=== PATIENT | male | born 1950 | race African-American/Black ===

== ENCOUNTER 2022-06-07 09:26 | Inpatient (IN) | payer MEDICARE, OTHER ==
[2022-06-07] MEDS ORDERED: GLUCAGON 1 MG/ML VIAL IM STA (09:49)
[2022-06-07 09:54] LABS: Glucose,Whole Blood 26 mg/dL (70-110)
[2022-06-07] MEDS ORDERED: DEXTROSE 50% SYRINGE 50 ML IVP STA (10:00)
--- NOTE | 2022-06-07 10:16 | ED ---
General Adult HPI - General Chief complaint: Recheck/Abnormal Lab/Rx Stated complaint: hyperglycemia Time Seen by Provider: 06/07/22 09:40 Source: patient, EMS, RN notes reviewed, old records reviewed Mode of arrival: EMS Limitations: altered mental status - History of Present Illness Initial comments: This is a 71-year-old male with past medical history significant for renal disease. Patient is on dialysis 3 days a week he missed yesterday's dialysis. Significant other found the patient unresponsive this morning and called EMS. EMS stated the patient's blood sugar was extremely low in the 40s but they were unable to get a line so they gave him oral glucose but had no effect so they brought to the emergency Department. No other history is available this time. There is no history of diabetes per the significant other - Related Data Home Medications Medication Instructions Recorded Confirmed ALPRAZolam [Xanax] 2 mg PO BID 06/07/22 06/07/22 Albuterol Nebulized [Ventolin 2.5 mg INHALATION RT-QID PRN 06/07/22 06/07/22 Nebulized] Amoxic-Pot Clav 500-125 mg 1 tab PO BID 06/07/22 06/07/22 [Augmentin 500-125 mg] Calcium Acetate [Phoslo] 2,004 mg PO TID 06/07/22 06/07/22 Cholecalciferol [Vitamin D3 (125 125 mcg PO DAILY 06/07/22 06/07/22 Mcg = 5000 Iu)] Cyclobenzaprine [Flexeril] 10 mg PO TID 06/07/22 06/07/22 Nora-Kathryn 1 tab PO DAILY 06/07/22 06/07/22 Tiotropium Br/Olodaterol HCl 2 puff INHALATION RT-DAILY 06/07/22 06/07/22 [Stiolto Respimat Inhal [place]] diphenhydrAMINE [Benadryl] 50 mg PO HS PRN 06/07/22 06/07/22 methylPREDNISolone [Medrol Dose See Taper PO DIRECTED 06/07/22 06/07/22 Pack] oxyCODONE-APAP 10-325MG [Percocet 1 tab PO Q4HR PRN 06/07/22 06/07/22 10-325 mg] Allergies Allergy/AdvReac Type Severity Reaction Status Date / Time No Known Allergies Allergy Verified 06/07/22 12:05 Review of Systems ROS Statement: Those systems with pertinent positive or pertinent negative responses have been documented in the HPI. ROS Other: All systems not noted in ROS Statement are negative. Past Medical History Past Medical History: Diabetes Mellitus, Dialysis History of Any Multi-Drug Resistant Organisms: None Reported Past Surgical History: Unable to Obtain Smoking Status: Unknown if ever smoked Past Alcohol Use History: Unable to Obtain Past Drug Use History: Unable to Obtain General Exam - General Exam Comments Initial Comments: GENERAL: Patient is well-developed and well-nourished. Patient is nontoxic and well- hydrated and is in mild distress. ENT: Neck is soft and supple. No significant lymphadenopathy is noted. Oropharynx is clear. Moist mucous membranes. Neck has full range of motion without eliciting any pain. EYES: The sclera were anicteric and conjunctiva were pink and moist. Extraocular movements were intact and pupils were equal round and reactive to light. Eyelids were unremarkable. PULMONARY: Unlabored respirations. Good breath sounds bilaterally. No audible rales r honchi or wheezing was noted. CARDIOVASCULAR: There is a regular rate and rhythm without any murmurs gallops or rubs. ABDOMEN: Soft and nontender with normal bowel sounds. SKIN: Skin is clear with no lesions or rashes and otherwise unremarkable. NEUROLOGIC: Patient is not alert . Patient appears to move all 4 extremities MUSCULOSKELETAL: Normal extremities with adequate strength and full range of motion. LYMPHATICS: No significant lymphadenopathy is noted PSYCHIATRIC: Unable to assess Limitations: altered mental status Course Vital Signs 06/07/22 09:31 Pulse Rate 104 H Respiratory 20 Rate Blood Pressure 162/104 O2 Sat by Pulse 97 Oximetry Medical Decision Making - Medical Decision Making EKG shows sinus rhythm with frequent PVCs at 99 bpm PA interval 248 QRS on a 47 QT interval 397 QTC is 453 per patient's EKG shows no ST segment elevation or depression. CT of the brain shows no acute abnormality. Chest x-ray shows no acute abnormality. Patient initially received 1 amp of D50 and after we did that his blood sugar was up over 200 and then the little bit later he dropped back down to 60/gave another half an amp of D50 and placed the patient on D5 0.[address] Waters he wanted to admit the patient and the patient wrote adm itting orders. I went back into the room to reevaluate the patient he was able to answer to me his name which was an improvement from his previous mental status. I also consulted nephrology - Lab Data Result diagrams: 06/07/22 09:05 06/07/22 09:05 Lab Results 06/07/22 06/07/22 06/07/22 Range/Units 09:05 09:05 09:05 WBC 9.7 (3.8-10.6) k/uL RBC 4.84 (4.30-5.90) m/uL Hgb 9.7 L (13.0-17.5) gm/dL Hct 36.1 L (39.0-53.0) % MCV 74.6 L (80.0-100.0) fL MCH 19.9 L (25.0-35.0) pg MCHC 26.7 L (31.0-37.0) g/dL RDW 21.1 H (11.5-15.5) % Plt Count 107 L (150-450) k/uL MPV 7.9 Neutrophils % 81 % Lymphocytes % 12 % Monocytes % 5 % Eosinophils % 0 % Basophils % 0 % Neutrophils # 7.9 H (1.3-7.7) k/uL Lymphocytes # 1.2 (1.0-4.8) k/uL Monocytes # 0.5 (0-1.0) k/uL Eosinophils # 0.0 (0-0.7) k/uL Basophils # 0.0 (0-0.2) k/uL Manual Slide Review Performed Hypochromasia Marked Poikilocytosis Slight Anisocytosis Moderate Microcytosis Moderate Target Cells Present Tear Drop Cells Present Rouleaux Present Fragmented RBCs Present Sodium 138 (137-145) mmol/L Potassium 5.0 (3.5-5.1) mmol/L Chloride 88 L (98-107) mmol/L Carbon Dioxide 15 L (22-30) mmol/L Anion Gap 35 mmol/L BUN 31 H (9-20) mg/dL Creatinine 9.53 H* (0.66-1.25) mg/dL Est GFR (CKD-EPI)AfAm 6 (>60 ml/min/1.73 sqM) Est GFR (CKD-EPI)NonAf 5 (>60 ml/min/1.73 sqM) Glucose <20 L* (74-99) mg/dL POC Glucose (mg/dL) (70-110) mg/dL POC Glu Rags Laborer ID Calcium 9.7 (8.4-10.2) mg/dL Magnesium 2.3 (1.6-2.3) mg/dL Total Bilirubin 4.1 H (0.2-1.3) mg/dL AST 76 H (17-59) U/L ALT 32 (4-49) U/L Alkaline Phosphatase 55 (38-126) U/L Troponin I (0.000-0.034) ng/mL Total Protein 8.9 H (6.3-8.2) g/dL Albumin 4.6 (3.5-5.0) g/dL 06/07/22 06/07/22 06/07/22 Range/Units 09:05 09:52 10:26 WBC (3.8-10.6) k/uL RBC (4.30-5.90) m/uL Hgb (13.0-17.5) gm/dL Hct (39.0-53.0) % MCV (80.0-100.0) fL MCH (25.0-35.0) pg MCHC (31.0-37.0) g/dL RDW (11.5-15.5) % Plt Count (150-450) k/uL MPV Neutrophils % % Lymphocytes % % Monocytes % % Eosinophils % % Basophils % % Neutrophils # (1.3-7.7) k/uL Lymphocytes # (1.0-4.8) k/uL Monocytes # (0-1.0) k/uL Eosinophils # (0-0.7) k/uL Basophils # (0-0.2) k/uL Manual Slide Review Hypochromasia Poikilocytosis Anisocytosis Microcytosis Target Cells Tear Drop Cells Rouleaux Fragmented RBCs Sodium (137-145) mmol/L Potassium (3.5-5.1) mmol/L Chloride (98-107) mmol/L Carbon Dioxide (22-30) mmol/L Anion Gap mmol/L BUN (9-20) mg/dL Creatinine (0.66-1.25) mg/dL Est GFR (CKD-EPI)AfAm (>60 ml/min/1.73 sqM) Est GFR (CKD-EPI)NonAf (>60 ml/min/1.73 sqM) Glucose (74-99) mg/dL POC Glucose (mg/dL) 26 L 104 (70-110) mg/dL POC Glu Rags Laborer Kris Saunders Maison Calcium (8.4-10.2) mg/dL Magnesium (1.6-2.3) mg/dL Total Bilirubin (0.2-1.3) mg/dL AST (17-59) U/L ALT (4-49) U/L Alkaline Phosphatase (38-126) U/L Troponin I 0.099 H* (0.000-0.034) ng/mL Total Protein (6.3-8.2) g/dL Albumin (3.5-5.0) g/dL 06/07/22 06/07/22 Range/Units 10:58 12:03 WBC (3.8-10.6) k/uL RBC (4.30-5.90) m/uL Hgb (13.0-17.5) gm/dL Hct (39.0-53.0) % MCV (80.0-100.0) fL MCH (25.0-35.0) pg MCHC (31.0-37.0) g/dL RDW (11.5-15.5) % Plt Count (150-450) k/uL MPV Neutrophils % % Lymphocytes % % Monocytes % % Eosinophils % % Basophils % % Neutrophils # (1.3-7.7) k/uL Lymphocytes # (1.0-4.8) k/uL Monocytes # (0-1.0) k/uL Eosinophils # (0-0.7) k/uL Basophils # (0-0.2) k/uL Manual Slide Review Hypochromasia Poikilocytosis Anisocytosis Microcytosis Target Cells Tear Drop Cells Rouleaux Fragmented RBCs Sodium (137-145) mmol/L Potassium (3.5-5.1) mmol/L Chloride (98-107) mmol/L Carbon Dioxide (22-30) mmol/L Anion Gap mmol/L BUN (9-20) mg/dL Creatinine (0.66-1.25) mg/dL Est GFR (CKD-EPI)AfAm (>60 ml/min/1.73 sqM) Est GFR (CKD-EPI)NonAf (>60 ml/min/1.73 sqM) Glucose (74-99) mg/dL POC Glucose (mg/dL) 205 H 60 L (70-110) mg/dL POC Glu Rags Laborer Charlotte Larson Maison Calcium (8.4-10.2) mg/dL Magnesium (1.6-2.3) mg/dL Total Bilirubin (0.2-1.3) mg/dL AST (17-59) U/L ALT (4-49) U/L Alkaline Phosphatase (38-126) U/L Troponin I (0.000-0.034) ng/mL Total Protein (6.3-8.2) g/dL Albumin (3.5-5.0) g/dL Critical Care Time Critical Care Time: Yes Total Critical Care Time: 35 Disposition Clinical Impression: Hypoglycemia, Altered mental status, Missed dialysis Disposition: ADMITTED IP TO THIS [facility] Referrals: None,Stated [REFERRING] - 1-2 days Time of Disposition: 12:36
[2022-06-07 10:18] LABS: Anisocytosis Moderate; Basophils % (A) 0 %; Eosinophils % (A) 0 %; HCT 36.1 % (39.0-53.0); HGB 9.7 gm/dL (13.0-17.5); Hypochromasia Marked; Lymphocytes # (A) 1.2 k/uL (1.0-4.8); Lymphocytes % (A) 12 %; MCH 19.9 pg (25.0-35.0); MCHC 26.7 g/dL (31.0-37.0); MCV 74.6 fL (80.0-100.0); Mean Platelet Volume 7.9; Microcytosis Moderate; Monocytes # (A) 0.5 k/uL (0-1.0); Monocytes % (A) 5 %; Neutrophils # (A) 7.9 k/uL (1.3-7.7); Neutrophils % (A) 81 %; Platelet Count 107 k/uL (150-450); Poikilocytosis Slight; RBC 4.84 m/uL (4.30-5.90); RDW 21.1 % (11.5-15.5); WBC 9.7 k/uL (3.8-10.6)
[2022-06-07 10:28] LABS: Glucose,Whole Blood 104 mg/dL (70-110)
[2022-06-07 10:41] LABS: AST 76 U/L (17-59); African American GFR (CKD) 6 (>60 ml/min/1.73 sqM); Albumin 4.6 g/dL (3.5-5.0); Alkaline Phosphatase 55 U/L (38-126); Anion Gap 35 mmol/L; Blood Urea Nitrogen 31 mg/dL (9-20); Calcium 9.7 mg/dL (8.4-10.2); Carbon Dioxide 15 mmol/L (22-30); Chloride 88 mmol/L (98-107); Non-African American GFR(CKD) 5 (>60 ml/min/1.73 sqM); Sodium 138 mmol/L (137-145); Total Bilirubin 4.1 mg/dL (0.2-1.3); Total Protein 8.9 g/dL (6.3-8.2)
[2022-06-07 10:49] LABS: ALT 32 U/L (4-49)
[2022-06-07 10:54] LABS: Glucose <20 mg/dL (74-99); RBC Fragments Present; Rouleaux Present; Target Cells Present; Tear Drop Cells Present
[2022-06-07 11:01] LABS: Glucose,Whole Blood 205 mg/dL (70-110)
--- NOTE | 2022-06-07 11:10 | XR ---
EXAMINATION TYPE: XR chest 1V portable DATE OF EXAM: 06/07/2022 COMPARISON: Chest x-ray May 03, 2022 HISTORY: Unresponsive. Shortness of breath. TECHNIQUE: Single portable frontal view of the chest is obtained. FINDINGS: Lordotic projection currently. There is no focal air space opacity, pleural effusion, or pn eumothorax seen. Cardiomegaly redemonstrated. The osseous structures are intact. Overlying EKG lead s on current study. Surgical change in the lumbar spine is partially imaged. IMPRESSION: Cardiomegaly without acute pulmonary process.
--- NOTE | 2022-06-07 11:39 | CT ---
EXAMINATION TYPE: CT brain wo con CT DLP: 1231.4 mGycm, Automated exposure control for dose reduction was used. DATE OF EXAM: 06/07/2022 11:31 AM COMPARISON: Prior CT Brain from 04/30/2021 . CLINICAL INDICATION:Male, 71 years old with history of Altered mental status TECHNIQUE: Brain: Multiple axial CT images of the brain were obtained without IV contrast. Coronal and sagittal reformats reviewed. FINDINGS: Brain: Extra-axial spaces: No abnormal extra-axial fluid collections. Ventricular system: Within normal limits Cerebral parenchyma: No acute intraparenchymal hemorrhage or mass effect. The souza-white junction is well differentiated. Scattered hypoattenuating areas are seen within the white matter. Cerebral vol ume loss. Cerebellum: Unremarkable. Mass effect: No evidence of midline shift. Intracranial vasculature: Atherosclerotic calcifications of the intracranial vessels. Soft tissues: Normal. Calvarium/osseous structures: No depressed skull fracture. Paranasal sinuses and mastoid air cells: Clear Visualized orbits: Orbital contents are intact. IMPRESSION: 1. No acute intracranial process. No significant change from prior examination. 2. Nonspecific white matter changes, likely secondary to chronic small vessel ischemic disease.
[2022-06-07 12:13] LABS: Glucose,Whole Blood 60 mg/dL (70-110)
[2022-06-07 12:44] LABS: Glucose,Whole Blood 92 mg/dL (70-110)
[2022-06-07] MEDS: DEXTROSE 5%-0.45% NACL 1,000 ML IV SCH (12:54)
[2022-06-07 14:49] LABS: Glucose,Whole Blood 208 mg/dL (70-110)
[2022-06-07 16:07] LABS: Glucose,Whole Blood 95 mg/dL (70-110)
[2022-06-07 17:16] LABS: Calcium 9.2 mg/dL (8.4-10.2); Potassium 4.9 mmol/L (3.5-5.1)
[2022-06-07 17:18] LABS: Anisocytosis Moderate; HCT 34.9 % (39.0-53.0); HGB 9.3 gm/dL (13.0-17.5); Hypochromasia Marked; MCH 19.8 pg (25.0-35.0); MCHC 26.8 g/dL (31.0-37.0); Mean Platelet Volume 7.8; Microcytosis Marked; Platelet Count 102 k/uL (150-450); Poikilocytosis Slight; RBC 4.71 m/uL (4.30-5.90); RDW 20.9 % (11.5-15.5)
[2022-06-07 17:48] LABS: Lymphocytes # (M) 1.28 k/uL (1.0-4.8); Monocytes # (M) 0.35 k/uL (0-1.0); Neutrophils # (M) 9.98 k/uL (1.3-7.7); Neutrophils % (M) 86 %; Nucleated Red Blood Cells 2 /100 WBC (0-0); Total Cells Counted 200; WBC 11.6 k/uL (3.8-10.6)
[2022-06-07 17:49] LABS: Hypochromasia (M) Present
[2022-06-07 17:50] LABS: Polychromasia Present; Target Cells Present
[2022-06-07 19:05] LABS: Glucose,Whole Blood 126 mg/dL (70-110)
[2022-06-07 21:23] LABS: Glucose,Whole Blood 128 mg/dL (70-110)
[2022-06-07] MEDS: LORazepam 1 MG/0.5 ML VIAL IV PRN (23:19)
[2022-06-07 23:28] LABS: Glucose,Whole Blood 95 mg/dL (70-110)
[2022-06-08 01:16] LABS: Glucose,Whole Blood 135 mg/dL (70-110)
[2022-06-08 03:09] LABS: Glucose,Whole Blood 289 mg/dL (70-110)
[2022-06-08 03:13] LABS: Glucose,Whole Blood 93 mg/dL (70-110)
[2022-06-08] MEDS: DEXTROSE 5%-0.45% NACL 1,000 ML IV SCH (03:44)
[2022-06-08 05:01] LABS: Glucose,Whole Blood 114 mg/dL (70-110)
[2022-06-08 07:10] LABS: Glucose,Whole Blood 102 mg/dL (70-110)
[2022-06-08 07:29] LABS: Calcium 8.6 mg/dL (8.4-10.2)
[2022-06-08 07:35] LABS: Potassium 4.9 mmol/L (3.5-5.1)
[2022-06-08 09:14] LABS: Glucose,Whole Blood 114 mg/dL (70-110)
--- NOTE | 2022-06-08 09:30 | P.NPCON ---
History of Present Illness - Reason for Consult end stage renal disease - History of Present Illness Reason for admission: End-stage renal disease History of present illness: Patient is a 71-year-old male seen in consultation for end-stage renal disease. He is maintained on hemodialysis on Saturday schedule via left upper extremity AV fistula. Patient did miss once his hemodialysis treatment and was dialyzed in the hospital yesterday. He is due for dialysis today per his outpatient schedule. Patient presented to the hospital after his significant other found him unresponsive and called EMS. Patient's blood sugar was low 40s and he was given oral glucose and brought to the hospital. Blood pressure has been stable. He is afebrile. He's currently receiving D5 half normal saline running at 75 mL an hour. Blood sugar this morning was 114. Patient is currently quite lethargic and is not really answering questions. Brain CT showed no acute intracranial process. Vital signs are stable. General: Appears lethargic. HEENT: Head exam is unremarkable. On nasal cannula. LUNGS: Breath sounds decreased. HEART: Rate and Rhythm are regular. ABDOMEN: Soft, no distention. EXTREMITITES: No edema. Past Medical History Past Medical History: Heart Failure, Dialysis, Pneumonia, Renal Disease Additional Past Medical History / Comment(s): pts. fiance/POA states he has had pneumonia for the last 6 weeks, polycystic kidney disease History of Any Multi-Drug Resistant Organisms: None Reported Past Surgical History: Joint Replacement, Orthopedic Surgery Additional Past Surgical History / Comment(s): left knee replacement, plates/screws right foot, back surgery Past Anesthesia/Blood Transfusion Reactions: No Reported Reaction Smoking Status: Current every day smoker - Past Family History Son(s) Family Medical History: Renal Disease Additional Family Medical History / Comment(s): polysystic kidney disease Father Family Medical History: Renal Disease Additional Family Medical History / Comment(s): polyctstic kidney disease Medications and Allergies Home Medications Medication Instructions Recorded Confirmed Type ALPRAZolam [Xanax] 2 mg PO BID 06/07/22 06/07/22 History Albuterol Nebulized [Ventolin 2.5 mg INHALATION RT-QID PRN 06/07/22 06/07/22 History Nebulized] Amoxic-Pot Clav 500-125 mg 1 tab PO BID 06/07/22 06/07/22 History [Augmentin 500-125 mg] Calcium Acetate [Phoslo] 2,004 mg PO TID 06/07/22 06/07/22 History Cholecalciferol [Vitamin D3 (125 125 mcg PO DAILY 06/07/22 06/07/22 History Mcg = 5000 Iu)] Cyclobenzaprine [Flexeril] 10 mg PO TID 06/07/22 06/07/22 History Nora-Kathryn 1 tab PO DAILY 06/07/22 06/07/22 History Tiotropium Br/Olodaterol HCl 2 puff INHALATION RT-DAILY 06/07/22 06/07/22 History [Stiolto Respimat Inhal [place]] diphenhydrAMINE [Benadryl] 50 mg PO HS PRN 06/07/22 06/07/22 History methylPREDNISolone [Medrol Dose See Taper PO DIRECTED 06/07/22 06/07/22 History Pack] oxyCODONE-APAP 10-325MG [Percocet 1 tab PO Q4HR PRN 06/07/22 06/07/22 History 10-325 mg] Allergies Allergy/AdvReac Type Severity Reaction Status Date / Time No Known Allergies Allergy Verified 06/07/22 12:05 Physical Exam Vitals: Vital Signs Temp Pulse Pulse Pulse Resp BP BP 06/08/22 04:00 98.1 F 92 18 154/78 06/08/22 02:00 106 H 18 06/08/22 00:00 97.6 F 106 H 18 151/74 06/07/22 20:00 97.9 F 101 H 18 131/66 06/07/22 19:11 97.2 F L 16 164/84 06/07/22 17:53 97.0 F L 06/07/22 16:06 95.2 F L 90 20 149/85 06/07/22 16:00 90 20 06/07/22 15:30 89 20 144/89 06/07/22 14:00 70 18 158/98 06/07/22 09:31 104 H 20 162/104 Pulse Ox 06/08/22 04:00 100 06/08/22 02:00 06/08/22 00:00 98 06/07/22 20:00 100 06/07/22 19:11 06/07/22 17:53 06/07/22 16:06 99 06/07/22 16:00 06/07/22 15:30 98 06/07/22 14:00 97 06/07/22 09:31 97 Intake and Output 06/07/22 06/08/22 06/08/22 22:59 06:59 14:59 Intake Total 300 Output Total 1800 Balance -1500 Intake: Hemodialysis 300 Output: Hemodialysis 1800 Other: # Voids 0 0 Weight 97.976 kg 78.5 kg Results - Lab Results Most recent lab results Calcium 8.6 mg/dL (8.4-10.2) 06/08/22 06:45 Magnesium 2.3 mg/dL (1.6-2.3) 06/07/22 09:05 06/07/22 16:40 06/08/22 06:45 Assessment and Plan Plan: Assessment: 1. End-stage renal disease maintained on hemodialysis on Saturday schedule via left approximately AV fistula. 2. Metabolic acidosis secondary to chronic kidney disease and lactic acidosis. Improved. 3. Hypoglycemia maintained on D5 half-normal saline. Improved. 4. Chronic kidney disease mineral bone disease. 5. Anemia of chronic kidney disease. Patient is ALLERGIC to IV iron. Plan: Hemodialysis today. Add Aranesp. Check phosphorus level. Change IV fluids to D10 drip. Hep-Lock was blood sugar stable and tolerating oral intake. Check urine drug screen. Thank you for the consultation. I will continue to follow the patient with you during his hospital stay.
[2022-06-08] MEDS: DEXTROSE 10% IN WATER 500 ML in EMPTY BAG 1 BAG IV SCH ×2 (09:55→21:10)
[2022-06-08] MEDS: DARBEPOETIN ALFA 40 MCG/0.4 ML SYRINGE SQ SCH (09:56)
[2022-06-08 10:34] LABS: Anisocytosis Moderate; Basophils % (A) 0 %; Eosinophils % (A) 0 %; HCT 35.8 % (39.0-53.0); HGB 9.7 gm/dL (13.0-17.5); Hypochromasia Marked; Lymphocytes # (A) 0.9 k/uL (1.0-4.8); Lymphocytes % (A) 9 %; MCH 19.7 pg (25.0-35.0); MCHC 27.2 g/dL (31.0-37.0); MCV 72.5 fL (80.0-100.0); Mean Platelet Volume 7.6; Microcytosis Marked; Monocytes # (A) 0.7 k/uL (0-1.0); Monocytes % (A) 7 %; Neutrophils # (A) 8.3 k/uL (1.3-7.7); Neutrophils % (A) 83 %; Poikilocytosis Slight; RBC 4.94 m/uL (4.30-5.90)
[2022-06-08 11:06] LABS: Glucose,Whole Blood 99 mg/dL (70-110)
[2022-06-08 13:02] LABS: Platelet Count 90 k/uL (150-450); RBC Fragments Present; Target Cells Present
[2022-06-08 13:03] LABS: Mixed Population RBC Present
[2022-06-08] MEDS ORDERED: ALBUTEROL NEBULIZED 2.5 MG/3 ML INHALATION PRN (14:21)
--- NOTE | 2022-06-08 14:29 | P.HPIM ---
History of Present Illness Chief Complaint: Altered mental status The patient is a 79-year-old black male with end-stage renal disease. The patie nt was having significant hypoglycemia. Poor by mouth intake. Mental status became so poor that he started having significant altered mental status. The patient was brought in secondary to his altered mental status. The patient is seemingly alert now in the morning after having appropriate medication to calm him down last night. Review of Systems Constitutional: Denies chills, Denies fever Eyes: denies blurred vision, denies pain Ears, nose, mouth and throat: Denies headache, Denies sore throat Cardiovascular: Denies chest pain, Denies shortness of breath Respiratory: Denies cough Gastrointestinal: Denies abdominal pain, Denies diarrhea, Denies nausea, Denies vomiting Past Medical History Past Medical History: Heart Failure, Dialysis, Pneumonia, Renal Disease Additional Past Medical History / Comment(s): pts. fiance/POA states he has had pneumonia for the last 6 weeks, polycystic kidney disease History of Any Multi-Drug Resistant Organisms: None Reported Past Surgical History: Joint Replacement, Orthopedic Surgery Additional Past Surgical History / Comment(s): left knee replacement, plates/screws right foot, back surgery Past Anesthesia/Blood Transfusion Reactions: No Reported Reaction Smoking Status: Current every day smoker - Past Family History Son(s) Family Medical History: Renal Disease Additional Family Medical History / Comment(s): polysystic kidney disease Father Family Medical History: Renal Disease Additional Family Medical History / Comment(s): polyctstic kidney disease Medications and Allergies Home Medications Medication Instructions Recorded Confirmed Type ALPRAZolam [Xanax] 2 mg PO BID 06/07/22 06/07/22 History Albuterol Nebulized [Ventolin 2.5 mg INHALATION RT-QID PRN 06/07/22 06/07/22 History Nebulized] Amoxic-Pot Clav 500-125 mg 1 tab PO BID 06/07/22 06/07/22 History [Augmentin 500-125 mg] Calcium Acetate [Phoslo] 2,004 mg PO TID 06/07/22 06/07/22 History Cholecalciferol [Vitamin D3 (125 125 mcg PO DAILY 06/07/22 06/07/22 History Mcg = 5000 Iu)] Cyclobenzaprine [Flexeril] 10 mg PO TID 06/07/22 06/07/22 History Nora-Kathryn 1 tab PO DAILY 06/07/22 06/07/22 History Tiotropium Br/Olodaterol HCl 2 puff INHALATION RT-DAILY 06/07/22 06/07/22 History [Stiolto Respimat Inhal [place]] diphenhydrAMINE [Benadryl] 50 mg PO HS PRN 06/07/22 06/07/22 History methylPREDNISolone [Medrol Dose See Taper PO DIRECTED 06/07/22 06/07/22 History Pack] oxyCODONE-APAP 10-325MG [Percocet 1 tab PO Q4HR PRN 06/07/22 06/07/22 History 10-325 mg] Allergies Allergy/AdvReac Type Severity Reaction Status Date / Time No Known Allergies Allergy Verified 06/07/22 12:05 Physical Exam Vitals: Vital Signs Temp Pulse Pulse Resp BP Pulse Ox 06/08/22 10:37 89 92 18 06/08/22 08:00 98.6 F 89 18 141/78 97 06/08/22 04:00 98.1 F 92 18 154/78 100 06/08/22 02:00 106 H 18 06/08/22 00:00 97.6 F 106 H 18 151/74 98 06/07/22 20:00 97.9 F 101 H 18 131/66 100 06/07/22 19:11 97.2 F L 16 164/84 06/07/22 17:53 97.0 F L 06/07/22 16:06 95.2 F L 90 20 149/85 99 06/07/22 16:00 90 20 06/07/22 15:30 89 20 144/89 98 Intake and Output 06/07/22 06/08/22 06/08/22 22:59 06:59 14:59 Intake Total 300 Output Total 1800 Balance -1500 Intake: Hemodialysis 300 Output: Hemodialysis 1800 Other: # Voids 0 0 Weight 97.976 kg 78.5 kg 78.5 kg - Constitutional General appearance: cooperative, no disheveled - EENT Eyes: EOMI - Neck Neck: no lymphadenopathy - Respiratory Respiratory: bilateral: diminished - Cardiovascular Rhythm: regular Heart sounds: normal: S1, S2 Abnormal Heart Sounds: no S3 Gallop - Gastrointestinal General gastrointestinal: soft, no tenderness - Integumentary Integumentary: no cellulitis Results CBC & Chem 7: 06/08/22 09:38 06/08/22 06:45 Labs: Abnormal Lab Results - Last 24 Hours (Table) 06/07/22 06/07/22 06/07/22 Range/Units 14:46 16:40 16:40 WBC 11.6 H (3.8-10.6) k/uL Hgb 9.3 L (13.0-17.5) gm/dL Hct 34.9 L (39.0-53.0) % MCV 74.0 L (80.0-100.0) fL MCH 19.8 L (25.0-35.0) pg MCHC 26.8 L (31.0-37.0) g/dL RDW 20.9 H (11.5-15.5) % Plt Count 102 L (150-450) k/uL Neutrophils # (1.3-7.7) k/uL Neutrophils # (Manual) 9.98 H (1.3-7.7) k/uL Lymphocytes # (1.0-4.8) k/uL Nucleated RBCs 2 H (0-0) /100 WBC Sodium 134 L (137-145) mmol/L Chloride 88 L (98-107) mmol/L Carbon Dioxide 14 L (22-30) mmol/L BUN 39 H (9-20) mg/dL Creatinine 9.96 H* (0.66-1.25) mg/dL Glucose 128 H (74-99) mg/dL POC Glucose (mg/dL) 208 H (70-110) mg/dL Plasma Lactic Acid [place] (0.7-2.0) mmol/L Phosphorus (2.5-4.5) mg/dL 06/07/22 06/07/22 06/07/22 Range/Units 16:40 19:03 19:52 WBC (3.8-10.6) k/uL Hgb (13.0-17.5) gm/dL Hct (39.0-53.0) % MCV (80.0-100.0) fL MCH (25.0-35.0) pg MCHC (31.0-37.0) g/dL RDW (11.5-15.5) % Plt Count (150-450) k/uL Neutrophils # (1.3-7.7) k/uL Neutrophils # (Manual) (1.3-7.7) k/uL Lymphocytes # (1.0-4.8) k/uL Nucleated RBCs (0-0) /100 WBC Sodium (137-145) mmol/L Chloride (98-107) mmol/L Carbon Dioxide (22-30) mmol/L BUN (9-20) mg/dL Creatinine (0.66-1.25) mg/dL Glucose (74-99) mg/dL POC Glucose (mg/dL) 126 H (70-110) mg/dL Plasma Lactic Acid Gilmer 11.3 H* 4.7 H* (0.7-2.0) mmol/L Phosphorus (2.5-4.5) mg/dL 06/07/22 06/08/22 06/08/22 Range/Units 21:22 01:13 03:08 WBC (3.8-10.6) k/uL Hgb (13.0-17.5) gm/dL Hct (39.0-53.0) % MCV (80.0-100.0) fL MCH (25.0-35.0) pg MCHC (31.0-37.0) g/dL RDW (11.5-15.5) % Plt Count (150-450) k/uL Neutrophils # (1.3-7.7) k/uL Neutrophils # (Manual) (1.3-7.7) k/uL Lymphocytes # (1.0-4.8) k/uL Nucleated RBCs (0-0) /100 WBC Sodium (137-145) mmol/L Chloride (98-107) mmol/L Carbon Dioxide (22-30) mmol/L BUN (9-20) mg/dL Creatinine (0.66-1.25) mg/dL Glucose (74-99) mg/dL POC Glucose (mg/dL) 128 H 135 H 289 H (70-110) mg/dL Plasma Lactic Acid Gilmer (0.7-2.0) mmol/L Phosphorus (2.5-4.5) mg/dL 06/08/22 06/08/22 06/08/22 Range/Units 03:13 05:00 06:45 WBC (3.8-10.6) k/uL Hgb (13.0-17.5) gm/dL Hct (39.0-53.0) % MCV (80.0-100.0) fL MCH (25.0-35.0) pg MCHC (31.0-37.0) g/dL RDW (11.5-15.5) % Plt Count (150-450) k/uL Neutrophils # (1.3-7.7) k/uL Neutrophils # (Manual) (1.3-7.7) k/uL Lymphocytes # (1.0-4.8) k/uL Nucleated RBCs (0-0) /100 WBC Sodium (137-145) mmol/L Chloride (98-107) mmol/L Carbon Dioxide (22-30) mmol/L BUN (9-20) mg/dL Creatinine (0.66-1.25) mg/dL Glucose (74-99) mg/dL POC Glucose (mg/dL) 114 H (70-110) mg/dL Plasma Lactic Acid [place] 4.1 H* 3.1 H* (0.7-2.0) mmol/L Phosphorus (2.5-4.5) mg/dL 06/08/22 06/08/22 06/08/22 Range/Units 06:45 06:45 09:11 WBC (3.8-10.6) k/uL Hgb (13.0-17.5) gm/dL Hct (39.0-53.0) % MCV (80.0-100.0) fL MCH (25.0-35.0) pg MCHC (31.0-37.0) g/dL RDW (11.5-15.5) % Plt Count (150-450) k/uL Neutrophils # (1.3-7.7) k/uL Neutrophils # (Manual) (1.3-7.7) k/uL Lymphocytes # (1.0-4.8) k/uL Nucleated RBCs (0-0) /100 WBC Sodium 133 L (137-145) mmol/L Chloride 93 L (98-107) mmol/L Carbon Dioxide 20 L (22-30) mmol/L BUN 37 H (9-20) mg/dL Creatinine 7.21 H* (0.66-1.25) mg/dL Glucose (74-99) mg/dL POC Glucose (mg/dL) 114 H (70-110) mg/dL Plasma Lactic Acid [place] (0.7-2.0) mmol/L Phosphorus 4.9 H (2.5-4.5) mg/dL 06/08/22 06/08/22 Range/Units 09:38 09:41 WBC (3.8-10.6) k/uL Hgb 9.7 L (13.0-17.5) gm/dL Hct 35.8 L (39.0-53.0) % MCV 72.5 L (80.0-100.0) fL MCH 19.7 L (25.0-35.0) pg MCHC 27.2 L (31.0-37.0) g/dL RDW 21.0 H (11.5-15.5) % Plt Count 90 L (150-450) k/uL Neutrophils # 8.3 H (1.3-7.7) k/uL Neutrophils # (Manual) (1.3-7.7) k/uL Lymphocytes # 0.9 L (1.0-4.8) k/uL Nucleated RBCs (0-0) /100 WBC Sodium (137-145) mmol/L Chloride (98-107) mmol/L Carbon Dioxide (22-30) mmol/L BUN (9-20) mg/dL Creatinine (0.66-1.25) mg/dL Glucose (74-99) mg/dL POC Glucose (mg/dL) (70-110) mg/dL Plasma Lactic Acid [place] 3.6 H* (0.7-2.0) mmol/L Phosphorus (2.5-4.5) mg/dL Thrombosis Risk Factor Assmnt - Choose All That Apply Any of the Below Risk Factors Present?: Yes Each Factor Represents 1 point: Medical pt on bed rest, Obesity (BMI >25), Serious lung disease incl. pneumonia (< 1month), Swollen legs (current) Other Risk Factors: Yes Each Risk Factor Represents 2 Points: Age 61-74 years Other congenital or acquired thrombophilia - If yes, enter type in comment: No Thrombosis Risk Factor Assessment Total Risk Factor Score: 6 Thrombosis Risk Factor Assessment Level: High Risk Assessment and Plan (1) ESRD (end stage renal disease) Current Visit: Yes Status: Acute Code(s): N18.6 - END STAGE RENAL DISEASE SNOMED Code(s): 11884761 (2) Altered mental status Current Visit: Yes Status: Acute Code(s): R41.82 - ALTERED MENTAL STATUS, UNSPECIFIED SNOMED Code(s): 381332098 (3) Hypoglycemia Current Visit: Yes Status: Acute Code(s): E16.2 - HYPOGLYCEMIA, UNSPECIFIED SNOMED Code(s): 411843691 (4) Missed dialysis Current Visit: Yes Status: Acute Code(s): JFV4013 - SNOMED Code(s): 084080302 Plan: Consult nephrology for dialysis. Restart most of home medications. Check CBC and CMP in a.m. The patient seemingly back to his baseline when interviewed. Prognosis still guarded secondary to multiple comorbidities.
[2022-06-08 14:31] LABS: Glucose,Whole Blood 67 mg/dL (70-110)
[2022-06-08 14:45] LABS: Glucose,Whole Blood 66 mg/dL (70-110)
[2022-06-08 15:04] LABS: Glucose,Whole Blood 75 mg/dL (70-110)
[2022-06-08] MEDS: LORazepam 1 MG/0.5 ML VIAL IV PRN (15:50)
[2022-06-08 15:58] LABS: Glucose,Whole Blood 87 mg/dL (70-110)
[2022-06-08] MEDS: CALCIUM ACETATE 667 MG TAB PO SCH (16:55)
[2022-06-08] MEDS: CYCLOBENZAPRINE 10 MG TAB PO SCH ×2 (16:56→19:58)
[2022-06-08 17:01] LABS: Glucose,Whole Blood 99 mg/dL (70-110)
[2022-06-08 19:19] LABS: Glucose,Whole Blood 126 mg/dL (70-110)
[2022-06-08] MEDS ORDERED: DESMOPRESSIN ACETATE 24 MCG in SODIUM CHLORIDE 0.9% 50 ML IVPB ONE (20:30)
[2022-06-08 20:34] LABS: Anisocytosis Moderate; Basophils % (A) 0 %; Eosinophils # (A) 0.1 k/uL (0-0.7); Eosinophils % (A) 1 %; HCT 31.4 % (39.0-53.0); HGB 8.7 gm/dL (13.0-17.5); Hypochromasia Marked; Lymphocytes # (A) 0.7 k/uL (1.0-4.8); Lymphocytes % (A) 8 %; MCH 19.8 pg (25.0-35.0); MCHC 27.8 g/dL (31.0-37.0); MCV 71.3 fL (80.0-100.0); Mean Platelet Volume 7.3; Microcytosis Marked; Monocytes # (A) 0.5 k/uL (0-1.0); Monocytes % (A) 6 %; Neutrophils # (A) 7.2 k/uL (1.3-7.7); Neutrophils % (A) 83 %; Poikilocytosis Slight; RDW 20.9 % (11.5-15.5); WBC 8.6 k/uL (3.8-10.6)
[2022-06-08 21:08] LABS: Platelet Count 80 k/uL (150-450)
[2022-06-08 21:09] LABS: Polychromasia Present
[2022-06-08 21:11] LABS: Target Cells Present
[2022-06-08 21:18] LABS: Glucose,Whole Blood 121 mg/dL (70-110)
[2022-06-08 23:14] LABS: Glucose,Whole Blood 107 mg/dL (70-110)
[2022-06-09] MEDS: oxyCODONE-APAP 10-325MG 1 EACH TAB PO PRN ×2 (00:18→05:49)
[2022-06-09] MEDS: LORazepam 0.5 MG TAB PO PRN ×2 (00:25→05:49)
[2022-06-09 01:05] LABS: Glucose,Whole Blood 99 mg/dL (70-110)
[2022-06-09 03:03] LABS: Glucose,Whole Blood 111 mg/dL (70-110)
[2022-06-09 04:59] LABS: Glucose,Whole Blood 89 mg/dL (70-110)
[2022-06-09] MEDS: CALCIUM ACETATE 667 MG TAB PO SCH ×3 (05:48→16:47)
[2022-06-09 07:17] LABS: Glucose,Whole Blood 87 mg/dL (70-110)
[2022-06-09] MEDS: FORMOTEROL FUMARATE 20 MCG/2 ML NEBU INHALATION SCH ×2 (07:34→20:49)
[2022-06-09] MEDS: IPRATROPIUM 0.5 MG/2.5 ML NEBU INHALATION SCH ×4 (07:34→20:49)
[2022-06-09 09:08] LABS: Glucose,Whole Blood 84 mg/dL (70-110)
[2022-06-09] MEDS: FOLIC ACID-VIT B COMPLEX-VIT C 1 CAP PO SCH (09:23)
[2022-06-09] MEDS: CYCLOBENZAPRINE 10 MG TAB PO SCH ×3 (09:23→21:17)
[2022-06-09] MEDS: CHOLECALCIFEROL 125 MCG (5000 IU) TABLET PO SCH (09:23)
[2022-06-09 10:09] LABS: Glucose,Whole Blood 103 mg/dL (70-110)
--- NOTE | 2022-06-09 10:57 | P.PN ---
Subjective Patient is seen for follow-up for end-stage renal disease. He is maintained on a Saturday schedule. Patient was admitted to the hospital with hypoglycemia. Patient's IV came out and he has not been able to have another IV placed. M idline has been ordered. There was no success with anesthesiologist as well. Patient had bleeding from his AV fistula yesterday after dialysis. He received a dose of DDAVP yesterday. No bleeding noted Blood sugars have improved and currently staying 84-103. No evidence of underlying infection noted Objective - Vital Signs Vital signs: Vital Signs Temp 98.1 F 06/09/22 03:12 Pulse 88 06/09/22 07:57 Resp 16 06/09/22 03:12 BP 161/83 06/09/22 03:12 Pulse Ox 93 L 06/09/22 03:12 FiO2 Intake & Output 06/08/22 06/09/22 06/09/22 18:59 06:59 18:59 Intake Total 720 Output Total 550 Balance -550 720 Weight 78.5 kg 89.5 kg Intake: Oral 720 Output: Urine 50 Hemodialysis 500 Other: # Voids 0 # Bowel Movements 0 - Exam Awake, comfortable, not in any acute distress Examination of the heart S1 and S2 Examination lungs bilateral breath sounds are heard Abdomen is soft nontender Exertion lower extremities shows no evidence of edema [employer]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 grossly intact - Labs CBC & Chem 7: 06/08/22 20:24 06/08/22 06:45 Labs: Abnormal Lab Results - Last 24 Hours (Table) 06/08/22 06/08/22 06/08/22 Range/Units 06:45 09:38 09:41 Hgb (13.0-17.5) gm/dL Hct (39.0-53.0) % MCV (80.0-100.0) fL MCH (25.0-35.0) pg MCHC (31.0-37.0) g/dL RDW (11.5-15.5) % Plt Count 90 L (150-450) k/uL Neutrophils # 8.3 H (1.3-7.7) k/uL Lymphocytes # 0.9 L (1.0-4.8) k/uL POC Glucose (mg/dL) (70-110) mg/dL Plasma Lactic Acid [place] 3.6 H* (0.7-2.0) mmol/L Phosphorus 4.9 H (2.5-4.5) mg/dL 06/08/22 06/08/22 06/08/22 Range/Units 14:24 14:44 19:16 Hgb (13.0-17.5) gm/dL Hct (39.0-53.0) % MCV (80.0-100.0) fL MCH (25.0-35.0) pg MCHC (31.0-37.0) g/dL RDW (11.5-15.5) % Plt Count (150-450) k/uL Neutrophils # (1.3-7.7) k/uL Lymphocytes # (1.0-4.8) k/uL POC Glucose (mg/dL) 67 L 66 L 126 H (70-110) mg/dL Plasma Lactic Acid [place] (0.7-2.0) mmol/L Phosphorus (2.5-4.5) mg/dL 06/08/22 06/08/22 06/09/22 Range/Units 20:24 21:17 03:02 Hgb 8.7 L (13.0-17.5) gm/dL Hct 31.4 L (39.0-53.0) % MCV 71.3 L (80.0-100.0) fL MCH 19.8 L (25.0-35.0) pg MCHC 27.8 L (31.0-37.0) g/dL RDW 20.9 H (11.5-15.5) % Plt Count 80 L (150-450) k/uL Neutrophils # (1.3-7.7) k/uL Lymphocytes # 0.7 L (1.0-4.8) k/uL POC Glucose (mg/dL) 121 H 111 H (70-110) mg/dL Plasma Lactic Acid [place] (0.7-2.0) mmol/L Phosphorus (2.5-4.5) mg/dL Microbiology - Last 24 Hours (Table) 06/07/22 16:50 Blood Culture - Preliminary Blood No Growth after 24 hours 06/07/22 16:40 Blood Culture - Preliminary Blood No Growth after 24 hours Assessment and Plan Assessment: 1. End-stage renal disease on hemodialysis on a Saturday vent is a Saturday schedule via left arm AV fistula 2. Hypoglycemia currently improved 3. CK D mineral bone disorder 4. Anemia of chronic disease maintained on Aranesp with ALLERGY to IV iron Plan: Hemodialysis on 06/11/2022 Encourage increased oral intake
[2022-06-09 11:50] LABS: Glucose,Whole Blood 90 mg/dL (70-110)
[2022-06-09] MEDS ORDERED: DEXTROSE 50% SYRINGE 50 ML IVP ONE (13:31)
[2022-06-09 13:38] LABS: Glucose,Whole Blood 69 mg/dL (70-110)
[2022-06-09 13:45] LABS: Glucose,Whole Blood 82 mg/dL (70-110)
[2022-06-09 15:22] LABS: Glucose,Whole Blood 77 mg/dL (70-110)
[2022-06-09 15:22] LABS: Glucose,Whole Blood 44 mg/dL (70-110)
[2022-06-09 15:35] LABS: Glucose,Whole Blood 135 mg/dL (70-110)
[2022-06-09 16:58] LABS: Glucose,Whole Blood 80 mg/dL (70-110)
[2022-06-09] MEDS: DEXTROSE 4 GM CHEWABLE PO SCH ×2 (17:16→21:17)
[2022-06-09 17:33] LABS: Glucose,Whole Blood 98 mg/dL (70-110)
[2022-06-09 19:43] LABS: Glucose,Whole Blood 98 mg/dL (70-110)
[2022-06-09 21:32] LABS: Glucose,Whole Blood 102 mg/dL (70-110)
[2022-06-09 23:43] LABS: Glucose,Whole Blood 113 mg/dL (70-110)
[2022-06-10 01:54] LABS: Glucose,Whole Blood 92 mg/dL (70-110)
[2022-06-10 03:58] LABS: Glucose,Whole Blood 100 mg/dL (70-110)
[2022-06-10 05:24] LABS: Anisocytosis Moderate; HCT 31.1 % (39.0-53.0); HGB 8.6 gm/dL (13.0-17.5); Hypochromasia Marked; MCHC 27.6 g/dL (31.0-37.0); MCV 72.5 fL (80.0-100.0); Mean Platelet Volume 7.5; Microcytosis Marked; Poikilocytosis Slight; RBC 4.28 m/uL (4.30-5.90)
[2022-06-10 05:36] LABS: Albumin 3.7 g/dL (3.5-5.0); Calcium 9.5 mg/dL (8.4-10.2); Potassium 3.9 mmol/L (3.5-5.1); Total Bilirubin 3.4 mg/dL (0.2-1.3); Total Protein 7.4 g/dL (6.3-8.2)
[2022-06-10 05:54] LABS: Glucose,Whole Blood 91 mg/dL (70-110)
[2022-06-10 06:16] LABS: Platelet Count 77 k/uL (150-450)
[2022-06-10] MEDS: FORMOTEROL FUMARATE 20 MCG/2 ML NEBU INHALATION SCH ×2 (07:07→19:42)
[2022-06-10] MEDS: IPRATROPIUM 0.5 MG/2.5 ML NEBU INHALATION SCH ×4 (07:07→19:42)
[2022-06-10 07:25] LABS: Band Neutrophils % 2 %; Eosinophils # (M) 0.07 k/uL (0-0.7); Lymphocytes # (M) 1.28 k/uL (1.0-4.8); Monocytes # (M) 0.28 k/uL (0-1.0); Neutrophils % (M) 77 %; Nucleated Red Blood Cells 1 /100 WBC (0-0); Total Cells Counted 200; WBC 7.1 k/uL (3.8-10.6)
[2022-06-10 07:26] LABS: Polychromasia Present; RBC Fragments Present
[2022-06-10 07:27] LABS: Target Cells Present
[2022-06-10 08:23] LABS: Glucose,Whole Blood 101 mg/dL (70-110)
[2022-06-10] MEDS: DEXTROSE 4 GM CHEWABLE PO SCH ×3 (09:02→21:13)
[2022-06-10] MEDS: CHOLECALCIFEROL 125 MCG (5000 IU) TABLET PO SCH (09:02)
[2022-06-10] MEDS: FOLIC ACID-VIT B COMPLEX-VIT C 1 CAP PO SCH (09:02)
[2022-06-10] MEDS: CYCLOBENZAPRINE 10 MG TAB PO SCH ×3 (09:02→21:15)
[2022-06-10] MEDS: CALCIUM ACETATE 667 MG TAB PO SCH ×3 (09:03→17:42)
--- NOTE | 2022-06-10 10:01 | P.PN ---
Subjective Progress Note Date: 06/09/22 79-year-old black male with end-stage renal disease. The patient was having significant hypoglycemia. Poor by mouth intake. Mental status became so poor that he started having significant altered mental status. The patient was brought in secondary to his altered mental status. The patient is seemingly alert now in the morning after having appropriate medication to calm him down last night. Patient continues to have episodes of significant hypoglycemia due to poor oral intake; patient has been getting IV dextrose for markedly low blood sugars; patient hasn't had any IV access even after anesthesia trying to start an IV; no pigment can be placed till after the weekend; patient was discussed with nursing staff and then discussed with pharmacy and patient has been placed on oral glucose tablets; we will start with 1 tablet every 4 hours and continue to monitor blood pressure closely with plans to titrate the dose according to patient's blood glucose levels Objective - Vital Signs Vital signs: Vital Signs Temp 98.1 F 06/09/22 03:12 Pulse 88 06/09/22 07:57 Resp 16 06/09/22 03:12 BP 161/83 06/09/22 03:12 Pulse Ox 93 L 06/09/22 03:12 FiO2 Intake & Output 06/08/22 06/09/22 06/09/22 18:59 06:59 18:59 Intake Total 720 Output Total 550 Balance -550 720 Weight 78.5 kg 89.5 kg Intake: Oral 720 Output: Urine 50 Hemodialysis 500 Other: # Voids 0 # Bowel Movements 0 - Exam - Constitutional General appearance: Present: average body habitus, cooperative, no acute distress - EENT Eyes: Present: anicteric sclerae, EOMI, PERRLA, normal appearance ENT: Present: hearing grossly normal, normal oropharynx Ears: bilateral: normal - Neck Neck: Present: normal ROM. Absent: lymphadenopathy, rigidity, thyromegaly Carotids: negative: bruit present Thyroid: bilateral: normal size, negative: enlarged, nodule - Respiratory Respiratory: bilateral: CTA, negative: rales, rhonchi, wheezing - Cardiovascular Rhythm: regular Heart sounds: normal: S1, S2 Abnormal Heart Sounds: Absent: systolic murmur, diastolic murmur - Gastrointestinal General gastrointestinal: Present: normal bowel sounds, soft. Absent: distended, organomegaly, tenderness - Genitourinary Genitourinary Comment(s): deferred - Integumentary Integumentary: Present: normal turgor. Absent: jaundiced, rash, ulcer - Neurologic Neurologic: Present: CNII-XII intact. Absent: focal deficits - Musculoskeletal Musculoskeletal: Present: gait normal, strength equal bilaterally - Psychiatric Psychiatric: Present: A&O x's 3, appropriate affect, intact judgment & insight - Labs CBC & Chem 7: 06/10/22 05:10 06/10/22 05:10 Labs: Abnormal Lab Results - Last 24 Hours (Table) 06/08/22 06/08/22 06/08/22 Range/Units 06:45 09:38 09:41 Hgb (13.0-17.5) gm/dL Hct (39.0-53.0) % MCV (80.0-100.0) fL MCH (25.0-35.0) pg MCHC (31.0-37.0) g/dL RDW (11.5-15.5) % Plt Count 90 L (150-450) k/uL Neutrophils # 8.3 H (1.3-7.7) k/uL Lymphocytes # 0.9 L (1.0-4.8) k/uL POC Glucose (mg/dL) (70-110) mg/dL Plasma Lactic Acid Gilmer 3.6 H* (0.7-2.0) mmol/L Phosphorus 4.9 H (2.5-4.5) mg/dL 06/08/22 06/08/22 06/08/22 Range/Units 14:24 14:44 19:16 Hgb (13.0-17.5) gm/dL Hct (39.0-53.0) % MCV (80.0-100.0) fL MCH (25.0-35.0) pg MCHC (31.0-37.0) g/dL RDW (11.5-15.5) % Plt Count (150-450) k/uL Neutrophils # (1.3-7.7) k/uL Lymphocytes # (1.0-4.8) k/uL POC Glucose (mg/dL) 67 L 66 L 126 H (70-110) mg/dL Plasma Lactic Acid [place] (0.7-2.0) mmol/L Phosphorus (2.5-4.5) mg/dL 06/08/22 06/08/22 06/09/22 Range/Units 20:24 21:17 03:02 Hgb 8.7 L (13.0-17.5) gm/dL Hct 31.4 L (39.0-53.0) % MCV 71.3 L (80.0-100.0) fL MCH 19.8 L (25.0-35.0) pg MCHC 27.8 L (31.0-37.0) g/dL RDW 20.9 H (11.5-15.5) % Plt Count 80 L (150-450) k/uL Neutrophils # (1.3-7.7) k/uL Lymphocytes # 0.7 L (1.0-4.8) k/uL POC Glucose (mg/dL) 121 H 111 H (70-110) mg/dL Plasma Lactic Acid [place] (0.7-2.0) mmol/L Phosphorus (2.5-4.5) mg/dL Microbiology - Last 24 Hours (Table) 06/07/22 16:50 Blood Culture - Preliminary Blood No Growth after 24 hours 06/07/22 16:40 Blood Culture - Preliminary Blood No Growth after 24 hours Assessment and Plan Assessment: 1. Persistent hypoglycemia; related to poor oral intake; continue to monitor Accu-Cheks every 4 hours and as needed; patient has no IV access and has been placed on oral glucose tablets to be used every 4 hours and titrate according to blood glucose 2. Altered mental status; likely related to hypoglycemic episodes 3. End-stage renal disease/hemodialysis; nephrology is on board 4. COPD; not in exacerbation; patient remains on Perforomist twice a day along with Atrovent nebulizer treatments 4 times a day and when necessary 5. Chronic pain; patient is currently on oxycodone 10 mg every 4 hours when necessary DVT prophylaxis; SCDs CODE STATUS; full code
[2022-06-10 10:11] LABS: Glucose,Whole Blood 127 mg/dL (70-110)
--- NOTE | 2022-06-10 10:45 | P.PN ---
Subjective Patient is seen for follow-up for end-stage renal disease. He is maintained on a Saturday schedule. Patient was admitted to the hospital with hypoglycemia. Patient's IV came out and he has not been able to have another IV placed. Blood sugars have improved and currently above 100. No evidence of underlying infection noted Objective - Vital Signs Vital signs: Vital Signs Temp 97.6 F 06/09/22 23:46 Pulse 88 06/10/22 07:24 Resp 20 06/10/22 04:00 BP 144/78 06/10/22 04:00 Pulse Ox 99 06/10/22 04:00 FiO2 Intake & Output 06/09/22 06/10/22 06/10/22 18:59 06:59 18:59 Intake Total 0 Balance 0 Intake: Oral 0 Other: # Voids 0 # Bowel Movements 0 - Exam Awake, comfortable, not in any acute distress, somewhat confused Examination of the heart S1 and S2 Examination lungs bilateral breath sounds are heard Abdomen is soft nontender Exertion lower extremities shows no evidence of edema [employer]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 - Labs CBC & Chem 7: 06/10/22 05:10 06/10/22 05:10 Labs: Abnormal Lab Results - Last 24 Hours (Table) 06/09/22 06/09/22 06/09/22 Range/Units 13:27 15:07 15:33 RBC (4.30-5.90) m/uL Hgb (13.0-17.5) gm/dL Hct (39.0-53.0) % MCV (80.0-100.0) fL MCH (25.0-35.0) pg MCHC (31.0-37.0) g/dL RDW (11.5-15.5) % Plt Count (150-450) k/uL Nucleated RBCs (0-0) /100 WBC Sodium (137-145) mmol/L Chloride (98-107) mmol/L Carbon Dioxide (22-30) mmol/L BUN (9-20) mg/dL Creatinine (0.66-1.25) mg/dL Glucose (74-99) mg/dL POC Glucose (mg/dL) 69 L 44 L 135 H (70-110) mg/dL Total Bilirubin (0.2-1.3) mg/dL AST (17-59) U/L ALT (4-49) U/L 06/09/22 06/10/22 06/10/22 Range/Units 23:42 05:10 05:10 RBC 4.28 L (4.30-5.90) m/uL Hgb 8.6 L (13.0-17.5) gm/dL Hct 31.1 L (39.0-53.0) % MCV 72.5 L (80.0-100.0) fL MCH 20.0 L (25.0-35.0) pg MCHC 27.6 L (31.0-37.0) g/dL RDW 21.0 H (11.5-15.5) % Plt Count 77 L (150-450) k/uL Nucleated RBCs 1 H (0-0) /100 WBC Sodium 132 L (137-145) mmol/L Chloride 94 L (98-107) mmol/L Carbon Dioxide 19 L (22-30) mmol/L BUN 54 H (9-20) mg/dL Creatinine 8.26 H* (0.66-1.25) mg/dL Glucose 106 H (74-99) mg/dL POC Glucose (mg/dL) 113 H (70-110) mg/dL Total Bilirubin 3.4 H (0.2-1.3) mg/dL AST 294 H (17-59) U/L ALT 129 H (4-49) U/L 06/10/22 Range/Units 10:00 RBC (4.30-5.90) m/uL Hgb (13.0-17.5) gm/dL Hct (39.0-53.0) % MCV (80.0-100.0) fL MCH (25.0-35.0) pg MCHC (31.0-37.0) g/dL RDW (11.5-15.5) % Plt Count (150-450) k/uL Nucleated RBCs (0-0) /100 WBC Sodium (137-145) mmol/L Chloride (98-107) mmol/L Carbon Dioxide (22-30) mmol/L BUN (9-20) mg/dL Creatinine (0.66-1.25) mg/dL Glucose (74-99) mg/dL POC Glucose (mg/dL) 127 H (70-110) mg/dL Total Bilirubin (0.2-1.3) mg/dL AST (17-59) U/L ALT (4-49) U/L Microbiology - Last 24 Hours (Table) 06/07/22 16:40 Blood Culture - Preliminary Blood No Growth after 48 hours 06/07/22 16:50 Blood Culture - Preliminary Blood No Growth after 48 hours Assessment and Plan Assessment: 1. End-stage renal disease on hemodialysis on a Saturday vent is a Saturday schedu le via left arm AV fistula 2. Hypoglycemia currently improved 3. CK D mineral bone disorder 4. Anemia of chronic disease maintained on Aranesp with ALLERGY to IV iron Plan: Hemodialysis in a.m. Continue with Aranesp
[2022-06-10 12:27] LABS: Glucose,Whole Blood 114 mg/dL (70-110)
[2022-06-10 14:32] LABS: Glucose,Whole Blood 127 mg/dL (70-110)
--- NOTE | 2022-06-10 16:13 | P.PN ---
Subjective Progress Note Date: 06/10/22 Principal diagnosis: Persistent hypoglycemia related to poor oral intake End-stage renal disease/HD Generalized weakness/debility 79-year-old black male with end-stage renal disease. The patient was having significant hypoglycemia. Poor by mouth intake. Mental status became so poor that he started having significant altered mental status. The patient was brought in secondary to his altered mental status. The patient is seemingly alert now in the morning after having appropriate medication to calm him down last night. Patient continues to have episodes of significant hypoglycemia due to poor oral intake; patient has been getting IV dextrose for markedly low blood sugars; patient hasn't had any IV access even after anesthesia trying to start an IV; no pigment can be placed till after the weekend; patient was discussed with nursing staff and then discussed with pharmacy and patient has been placed on oral glucose tablets; we will start with 1 tablet every 4 hours and continue to monitor blood pressure closely with plans to titrate the dose according to patient's blood glucose levels 06/10/2022 Patient is seen and evaluated resting in bed; opens eyes to verbal stimulation; discussed with nursing staff; continues to have extremely poor oral intake and is relying vessel oral glucose tablets to maintain blood sugar Vital signs are reviewed and stable with temperature of 97.6 pulse 88, respiration 20 and blood pressure 144/78 Nephrology on board and planning to continue with hemodialysis with Saturday schedule We will consult palliative care to clarify goals of care with patient and family Objective - Vital Signs Vital signs: Vital Signs Temp 97.6 F 06/09/22 23:46 Pulse 88 06/10/22 07:24 Resp 20 06/10/22 04:00 BP 144/78 06/10/22 04:00 Pulse Ox 99 06/10/22 04:00 FiO2 Intake & Output 06/09/22 06/10/22 06/10/22 18:59 06:59 18:59 Intake Total 0 Balance 0 Intake: Oral 0 Other: # Voids 0 # Bowel Movements 0 - Exam - Constitutional General appearance: Present: average body habitus, cooperative, no acute distre ss - EENT Eyes: Present: anicteric sclerae, EOMI, PERRLA, normal appearance ENT: Present: hearing grossly normal, normal oropharynx Ears: bilateral: normal - Neck Neck: Present: normal ROM. Absent: lymphadenopathy, rigidity, thyromegaly Carotids: negative: bruit present Thyroid: bilateral: normal size, negative: enlarged, nodule - Respiratory Respiratory: bilateral: CTA, negative: rales, rhonchi, wheezing - Cardiovascular Rhythm: regular Heart sounds: normal: S1, S2 Abnormal Heart Sounds: Absent: systolic murmur, diastolic murmur - Gastrointestinal General gastrointestinal: Present: normal bowel sounds, soft. Absent: distended, organomegaly, tenderness - Genitourinary Genitourinary Comment(s): deferred - Integumentary Integumentary: Present: normal turgor. Absent: jaundiced, rash, ulcer - Neurologic Neurologic: Present: CNII-XII intact. Absent: focal deficits - Musculoskeletal Musculoskeletal: Present: gait normal, strength equal bilaterally - Psychiatric Psychiatric: Present: A&O x's 3, appropriate affect, intact judgment & insight - Labs CBC & Chem 7: 06/10/22 05:10 06/10/22 05:10 Labs: Abnormal Lab Results - Last 24 Hours (Table) 06/09/22 06/09/22 06/09/22 Range/Units 13:27 15:07 15:33 RBC (4.30-5.90) m/uL Hgb (13.0-17.5) gm/dL Hct (39.0-53.0) % MCV (80.0-100.0) fL MCH (25.0-35.0) pg MCHC (31.0-37.0) g/dL RDW (11.5-15.5) % Plt Count (150-450) k/uL Nucleated RBCs (0-0) /100 WBC Sodium (137-145) mmol/L Chloride (98-107) mmol/L Carbon Dioxide (22-30) mmol/L BUN (9-20) mg/dL Creatinine (0.66-1.25) mg/dL Glucose (74-99) mg/dL POC Glucose (mg/dL) 69 L 44 L 135 H (70-110) mg/dL Total Bilirubin (0.2-1.3) mg/dL AST (17-59) U/L ALT (4-49) U/L 06/09/22 06/10/22 06/10/22 Range/Units 23:42 05:10 05:10 RBC 4.28 L (4.30-5.90) m/uL Hgb 8.6 L (13.0-17.5) gm/dL Hct 31.1 L (39.0-53.0) % MCV 72.5 L (80.0-100.0) fL MCH 20.0 L (25.0-35.0) pg MCHC 27.6 L (31.0-37.0) g/dL RDW 21.0 H (11.5-15.5) % Plt Count 77 L (150-450) k/uL Nucleated RBCs 1 H (0-0) /100 WBC Sodium 132 L (137-145) mmol/L Chloride 94 L (98-107) mmol/L Carbon Dioxide 19 L (22-30) mmol/L BUN 54 H (9-20) mg/dL Creatinine 8.26 H* (0.66-1.25) mg/dL Glucose 106 H (74-99) mg/dL POC Glucose (mg/dL) 113 H (70-110) mg/dL Total Bilirubin 3.4 H (0.2-1.3) mg/dL AST 294 H (17-59) U/L ALT 129 H (4-49) U/L Microbiology - Last 24 Hours (Table) 06/07/22 16:40 Blood Culture - Preliminary Blood No Growth after 48 hours 06/07/22 16:50 Blood Culture - Preliminary Blood No Growth after 48 hours
[2022-06-10 16:34] LABS: Glucose,Whole Blood 105 mg/dL (70-110)
[2022-06-10] MEDS: LORazepam 0.5 MG TAB PO PRN (18:23)
[2022-06-10 19:58] LABS: Glucose,Whole Blood 127 mg/dL (70-110)
[2022-06-10 21:50] LABS: Glucose,Whole Blood 130 mg/dL (70-110)
[2022-06-11 00:11] LABS: Glucose,Whole Blood 116 mg/dL (70-110)
[2022-06-11 02:00] LABS: Glucose,Whole Blood 109 mg/dL (70-110)
[2022-06-11 04:00] LABS: Glucose,Whole Blood 108 mg/dL (70-110)
[2022-06-11 06:16] LABS: Glucose,Whole Blood 99 mg/dL (70-110)
[2022-06-11] MEDS: CALCIUM ACETATE 667 MG TAB PO SCH ×3 (06:46→17:19)
[2022-06-11] MEDS: FORMOTEROL FUMARATE 20 MCG/2 ML NEBU INHALATION SCH ×2 (07:08→20:06)
[2022-06-11] MEDS: IPRATROPIUM 0.5 MG/2.5 ML NEBU INHALATION SCH ×4 (07:09→20:06)
[2022-06-11] MEDS: CHOLECALCIFEROL 125 MCG (5000 IU) TABLET PO SCH (07:54)
[2022-06-11] MEDS: CYCLOBENZAPRINE 10 MG TAB PO SCH ×3 (07:54→20:22)
[2022-06-11] MEDS: FOLIC ACID-VIT B COMPLEX-VIT C 1 CAP PO SCH (07:54)
[2022-06-11] MEDS: DEXTROSE 4 GM CHEWABLE PO SCH ×4 (07:56→20:30)
[2022-06-11 08:08] LABS: Glucose,Whole Blood 110 mg/dL (70-110)
[2022-06-11 08:23] LABS: Bilirubin, Conjugated 1.3 mg/dL (0.0-0.3); Bilirubin, Delta 1.5 mg/dL (0.0-0.2); Bilirubin,Unconjugated 0.9 mg/dL (0.0-1.1); Calcium 9.5 mg/dL (8.4-10.2); Magnesium 2.3 mg/dL (1.6-2.3); Total Bilirubin 3.7 mg/dL (0.2-1.3)
[2022-06-11 08:24] LABS: Albumin 3.8 g/dL (3.5-5.0); Total Protein 7.6 g/dL (6.3-8.2)
[2022-06-11 08:45] LABS: Anisocytosis Moderate; HCT 32.9 % (39.0-53.0); HGB 9.3 gm/dL (13.0-17.5); Hypochromasia Marked; MCH 20.4 pg (25.0-35.0); MCHC 28.4 g/dL (31.0-37.0); MCV 71.9 fL (80.0-100.0); Mean Platelet Volume 8.1; Microcytosis Marked; Poikilocytosis Slight; RBC 4.58 m/uL (4.30-5.90); RDW 21.2 % (11.5-15.5)
[2022-06-11 08:50] LABS: Platelet Count 89 k/uL (150-450)
[2022-06-11 09:46] LABS: Basophils # (M) 0.07 k/uL (0-0.2); Eosinophils # (M) 0.07 k/uL (0-0.7); Neutrophils % (M) 80 %; Nucleated Red Blood Cells 4 /100 WBC (0-0); Total Cells Counted 200
[2022-06-11 09:47] LABS: Lymphocytes # (M) 0.62 k/uL (1.0-4.8); Monocytes # (M) 0.69 k/uL (0-1.0); Neutrophils # (M) 5.52 k/uL (1.3-7.7); WBC 6.9 k/uL (3.8-10.6)
[2022-06-11 09:48] LABS: Target Cells Present; Tear Drop Cells Present
[2022-06-11 09:50] LABS: RBC Fragments Present
--- NOTE | 2022-06-11 09:54 | P.PN ---
Subjective Patient is seen for follow-up for end-stage renal disease. He is maintained on a Saturday schedule. Patient was admitted to the hospital with hypoglycemia. Patient's IV came out and he has not been able to have another IV placed. Blood sugars have improved and currently above 100. No evidence of underlying infection noted Patient has been confused but mentation seems to have improved since admission. 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 - Labs CBC & Chem 7: 06/11/22 07:10 06/11/22 07:10 Labs: Abnormal Lab Results - Last 24 Hours (Table) 06/10/22 06/10/22 06/10/22 Range/Units 10:00 11:58 14:28 Hgb (13.0-17.5) gm/dL Hct (39.0-53.0) % MCV (80.0-100.0) fL MCH (25.0-35.0) pg MCHC (31.0-37.0) g/dL RDW (11.5-15.5) % Plt Count (150-450) k/uL Lymphocytes # (Manual) (1.0-4.8) k/uL Nucleated RBCs (0-0) /100 WBC Sodium (137-145) mmol/L Chloride (98-107) mmol/L Carbon Dioxide (22-30) mmol/L BUN (9-20) mg/dL Creatinine (0.66-1.25) mg/dL POC Glucose (mg/dL) 127 H 114 H 127 H (70-110) mg/dL Total Bilirubin (0.2-1.3) mg/dL Conjugated Bilirubin (0.0-0.3) mg/dL Delta Bilirubin (0.0-0.2) mg/dL AST (17-59) U/L ALT (4-49) U/L 06/10/22 06/10/22 06/10/22 Range/Units 19:47 21:49 23:59 Hgb (13.0-17.5) gm/dL Hct (39.0-53.0) % MCV (80.0-100.0) fL MCH (25.0-35.0) pg MCHC (31.0-37.0) g/dL RDW (11.5-15.5) % Plt Count (150-450) k/uL Lymphocytes # (Manual) (1.0-4.8) k/uL Nucleated RBCs (0-0) /100 WBC Sodium (137-145) mmol/L Chloride (98-107) mmol/L Carbon Dioxide (22-30) mmol/L BUN (9-20) mg/dL Creatinine (0.66-1.25) mg/dL POC Glucose (mg/dL) 127 H 130 H 116 H (70-110) mg/dL Total Bilirubin (0.2-1.3) mg/dL Conjugated Bilirubin (0.0-0.3) mg/dL Delta Bilirubin (0.0-0.2) mg/dL AST (17-59) U/L ALT (4-49) U/L 06/11/22 06/11/22 Range/Units 07:10 07:10 Hgb 9.3 L (13.0-17.5) gm/dL Hct 32.9 L (39.0-53.0) % MCV 71.9 L (80.0-100.0) fL MCH 20.4 L (25.0-35.0) pg MCHC 28.4 L (31.0-37.0) g/dL RDW 21.2 H (11.5-15.5) % Plt Count 89 L (150-450) k/uL Lymphocytes # (Manual) 0.62 L (1.0-4.8) k/uL Nucleated RBCs 4 H (0-0) /100 WBC Sodium 134 L (137-145) mmol/L Chloride 95 L (98-107) mmol/L Carbon Dioxide 20 L (22-30) mmol/L BUN 65 H (9-20) mg/dL Creatinine 9.79 H* (0.66-1.25) mg/dL POC Glucose (mg/dL) (70-110) mg/dL Total Bilirubin 3.7 H (0.2-1.3) mg/dL Conjugated Bilirubin 1.3 H (0.0-0.3) mg/dL Delta Bilirubin 1.5 H (0.0-0.2) mg/dL AST 158 H (17-59) U/L ALT 106 H (4-49) U/L Microbiology - Last 24 Hours (Table) 06/07/22 16:50 Blood Culture - Preliminary Blood No Growth after 72 hours 06/07/22 16:40 Blood Culture - Preliminary Blood No Growth after 72 hours Assessment and Plan Assessment: 1. End-stage renal disease on hemodialysis on a Saturday vent is a Saturday schedule via left arm AV fistula 2. Hypoglycemia currently improved 3. CK D mineral bone disorder 4. Anemia of chronic disease maintained on Aranesp with ALLERGY to IV iron 5. Altered mentation most likely associated with hypoglycemia currently improvi ng Plan: Hemodialysis today Continue with Aranesp
[2022-06-11 10:15] LABS: Glucose,Whole Blood 103 mg/dL (70-110)
[2022-06-11 11:57] LABS: Glucose,Whole Blood 84 mg/dL (70-110)
--- NOTE | 2022-06-11 13:11 | P.PN ---
Subjective 79-year-old black male with end-stage renal disease. The patient was having significant hypoglycemia. Poor by mouth intake. Mental status became so poor that he started having significant altered mental status. The patient was brought in secondary to his altered mental status. The patient is seemingly alert now in the morning after having appropriate medication to calm him down last night. Patient continues to have episodes of significant hypoglycemia due to poor oral intake; patient has been getting IV dextrose for markedly low blood sugars; patient hasn't had any IV access even after anesthesia trying to start an IV; no pigment can be placed till after the weekend; patient was discussed with nursing staff and then discussed with pharmacy and patient has been placed on oral glucose tablets; we will start with 1 tablet every 4 hours and continue to monitor blood pressure closely with plans to titrate the dose according to patient's blood glucose levels 06/10/2022 Patient is seen and evaluated resting in bed; opens eyes to verbal stimulation; discussed with nursing staff; continues to have extremely poor oral intake and is relying vessel oral glucose tablets to maintain blood sugar Vital signs are reviewed and stable with temperature of 97.6 pulse 88, respiration 20 and blood pressure 144/78 Nephrology on board and planning to continue with hemodialysis with Saturday schedule We will consult palliative care to clarify goals of care with patient and family 06/11/2022 This is a pleasant 71 years old male presents with altered mental status related to his end-stage renal disease and hypoglycemia, present on admission. He had poor oral intake. He is on diabetes medication. Patient has been evaluated by tap grinder and his getting one dialysis. Today he is fully awake and oriented. He denies any specific complaints. He is still not eating well. We will consult dietitian for this purpose. His hemoglobin 9.3, platelet 89, creatinine 9.7. Elevated bilirubin comment on 43.4 down to 1.3, AST, down to 294 down to 158 and ALT 129 down to 106 Patient is undergoing hemodialysis today. On admission his troponin was elevated 0.9, no previous cardiac history in this facility. No chest pain currently. We will check echocardiogram and jinriksha driver to see the patient . He is currently not on aspirin on anticoagulation. We will start the patient on subcu heparin and Pepcid Objective - Vital Signs Vital signs: Vital Signs Temp 98 F 06/11/22 07:50 Pulse 88 06/11/22 08:00 Resp 18 09/05/22 08:00 BP 130/65 06/11/22 07:50 Pulse Ox 98 06/11/22 07:50 FiO2 Intake & Output 06/10/22 06/11/22 06/11/22 18:59 06:59 18:59 Intake Total 0 100 Balance 0 100 Intake: Oral 0 100 Other: # Voids 0 1 # Bowel Movements 0 1 - Exam GENERAL: The patient is alert and oriented x3, not in any acute distress. Well developed, well nourished. HEENT: Pupils are round and equally reacting to light. EOMI. No scleral icterus. No conjunctival pallor. Normocephalic, atraumatic. No pharyngeal erythema. No thyromegaly. CARDIOVASCULAR: S1 and S2 present. No murmurs, rubs, or gallops. PULMONARY: Chest is clear to auscultation, no wheezing or crackles. ABDOMEN: Soft, nontender, nondistended, normoactive bowel sounds. No palpable organomegaly. MUSCULOSKELETAL: No joint swelling or deformity. -EXTREMITIES: No cyanosis, clubbing, or pedal edema. Left upper extremity fistula NEUROLOGICAL: Gross neurological examination did not reveal any focal deficits. SKIN: No rashes. no petechiae. - Labs CBC & Chem 7: 06/11/22 07:10 06/11/22 07:10 Labs: Abnormal Lab Results - Last 24 Hours (Table) 06/10/22 06/10/22 06/10/22 Range/Units 11:58 14:28 19:47 Hgb (13.0-17.5) gm/dL Hct (39.0-53.0) % MCV (80.0-100.0) fL MCH (25.0-35.0) pg MCHC (31.0-37.0) g/dL RDW (11.5-15.5) % Plt Count (150-450) k/uL Lymphocytes # (Manual) (1.0-4.8) k/uL Nucleated RBCs (0-0) /100 WBC Sodium (137-145) mmol/L Chloride (98-107) mmol/L Carbon Dioxide (22-30) mmol/L BUN (9-20) mg/dL Creatinine (0.66-1.25) mg/dL POC Glucose (mg/dL) 114 H 127 H 127 H (70-110) mg/dL Total Bilirubin (0.2-1.3) mg/dL Conjugated Bilirubin (0.0-0.3) mg/dL Delta Bilirubin (0.0-0.2) mg/dL AST (17-59) U/L ALT (4-49) U/L 06/10/22 06/10/22 06/11/22 Range/Units 21:49 23:59 07:10 Hgb 9.3 L (13.0-17.5) gm/dL Hct 32.9 L (39.0-53.0) % MCV 71.9 L (80.0-100.0) fL MCH 20.4 L (25.0-35.0) pg MCHC 28.4 L (31.0-37.0) g/dL RDW 21.2 H (11.5-15.5) % Plt Count 89 L (150-450) k/uL Lymphocytes # (Manual) 0.62 L (1.0-4.8) k/uL Nucleated RBCs 4 H (0-0) /100 WBC Sodium (137-145) mmol/L Chloride (98-107) mmol/L Carbon Dioxide (22-30) mmol/L BUN (9-20) mg/dL Creatinine (0.66-1.25) mg/dL POC Glucose (mg/dL) 130 H 116 H (70-110) mg/dL Total Bilirubin (0.2-1.3) mg/dL Conjugated Bilirubin (0.0-0.3) mg/dL Delta Bilirubin (0.0-0.2) mg/dL AST (17-59) U/L ALT (4-49) U/L 06/11/22 Range/Units 07:10 Hgb (13.0-17.5) gm/dL Hct (39.0-53.0) % MCV (80.0-100.0) fL MCH (25.0-35.0) pg MCHC (31.0-37.0) g/dL RDW (11.5-15.5) % Plt Count (150-450) k/uL Lymphocytes # (Manual) (1.0-4.8) k/uL Nucleated RBCs (0-0) /100 WBC Sodium 134 L (137-145) mmol/L Chloride 95 L (98-107) mmol/L Carbon Dioxide 20 L (22-30) mmol/L BUN 65 H (9-20) mg/dL Creatinine 9.79 H* (0.66-1.25) mg/dL POC Glucose (mg/dL) (70-110) mg/dL Total Bilirubin 3.7 H (0.2-1.3) mg/dL Conjugated Bilirubin 1.3 H (0.0-0.3) mg/dL Delta Bilirubin 1.5 H (0.0-0.2) mg/dL AST 158 H (17-59) U/L ALT 106 H (4-49) U/L Microbiology - Last 24 Hours (Table) 06/07/22 16:50 Blood Culture - Preliminary Blood No Growth after 72 hours 06/07/22 16:40 Blood Culture - Preliminary Blood No Growth after 72 hours Assessment and Plan Assessment: 1. Persistent hypoglycemia; related to poor oral intake; patient is awake and eating better, glucose is stable, keep monitoring 2. Altered mental status; likely related to hypoglycemic episodes. Completely resolved 3. End-stage renal disease/hemodialysis; nephrology is on board. Getting hemodialysis today 4. COPD; not in exacerbation; patient remains on Perforomist twice a day along with Atrovent nebulizer treatments 4 times a day and when necessary 5. Chronic pain; patient is currently on oxycodone 10 mg every 4 hours when necessary 6. Elevated liver enzymes, asymptomatic. Trending down. Keep monitoring 7. Elevated troponin. No chest pain. Patient is not on aspirin. Check echocardiogram and jinriksha driver consult DVT prophylaxis; SCDs. At subcutaneous heparin GI prophylaxis: Pepcid CODE STATUS; full code
[2022-06-11 14:09] LABS: Glucose,Whole Blood 125 mg/dL (70-110)
[2022-06-11 16:21] LABS: Glucose,Whole Blood 105 mg/dL (70-110)
[2022-06-11] MEDS: oxyCODONE-APAP 10-325MG 1 EACH TAB PO PRN (17:20)
[2022-06-11 18:09] LABS: Glucose,Whole Blood 128 mg/dL (70-110)
[2022-06-11] MEDS: FAMOTIDINE 20 MG/2 ML VIAL IV SCH (20:20)
[2022-06-11] MEDS: HEPARIN SODIUM,PORCINE/PF 5,000 UNIT/0.5 ML SYRINGE SQ SCH (20:22)
[2022-06-11 20:29] LABS: Glucose,Whole Blood 125 mg/dL (70-110)
[2022-06-11] MEDS ORDERED: FAMOTIDINE 20 MG/2 ML VIAL IV SCH (21:00)
[2022-06-12 00:26] LABS: Glucose,Whole Blood 111 mg/dL (70-110)
[2022-06-12] MEDS: CALCIUM ACETATE 667 MG TAB PO SCH ×3 (06:20→19:43)
[2022-06-12 06:25] LABS: Glucose,Whole Blood 98 mg/dL (70-110)
[2022-06-12] MEDS: FORMOTEROL FUMARATE 20 MCG/2 ML NEBU INHALATION SCH ×2 (07:33→20:03)
[2022-06-12] MEDS: IPRATROPIUM 0.5 MG/2.5 ML NEBU INHALATION SCH ×4 (07:33→20:03)
[2022-06-12] MEDS: HEPARIN SODIUM,PORCINE/PF 5,000 UNIT/0.5 ML SYRINGE SQ SCH ×2 (08:12→20:08)
[2022-06-12] MEDS: CYCLOBENZAPRINE 10 MG TAB PO SCH ×3 (08:12→21:06)
[2022-06-12] MEDS: DEXTROSE 4 GM CHEWABLE PO SCH ×4 (08:12→21:06)
[2022-06-12] MEDS: CHOLECALCIFEROL 125 MCG (5000 IU) TABLET PO SCH (08:12)
[2022-06-12] MEDS: FOLIC ACID-VIT B COMPLEX-VIT C 1 CAP PO SCH (08:12)
--- NOTE | 2022-06-12 08:19 | P.PN ---
Subjective Progress Note Date: 06/12/22 Principal diagnosis: The patient was essentially admitted for altered mental status and hypoglycemia. The patient still seems a little bit off to me today. Nutrition status impro ryan. But sugar stabilizing. No voiding difficulties. The patient seems to have poor past memory. Question confabulation. Objective - Vital Signs Vital signs: Vital Signs Temp 98.0 F 06/12/22 03:55 Pulse 57 L 06/12/22 07:47 Resp 14 06/12/22 03:55 BP 122/63 06/12/22 03:55 Pulse Ox 100 06/12/22 07:33 FiO2 Intake & Output 06/11/22 06/12/22 06/12/22 18:59 06:59 18:59 Intake Total 538 100 Output Total 1800 Balance -1262 100 Intake: Oral 238 100 Hemodialysis 300 Output: Hemodialysis 1800 Other: # Voids 0 - Constitutional General appearance: Present: average body habitus - EENT Eyes: Absent: abnormal pupil - Neck Neck: Absent: lymphadenopathy - Respiratory Respiratory: bilateral: diminished - Cardiovascular Rhythm: regular Heart sounds: normal: S1, S2 Abnormal Heart Sounds: Absent: S3 Gallop - Psychiatric Psychiatric: Absent: A&O x's 3 - Labs CBC & Chem 7: 06/11/22 07:10 06/11/22 07:10 Labs: Abnormal Lab Results - Last 24 Hours (Table) 06/11/22 06/11/22 06/11/22 Range/Units 07:10 07:10 13:58 Hgb 9.3 L (13.0-17.5) gm/dL Hct 32.9 L (39.0-53.0) % MCV 71.9 L (80.0-100.0) fL MCH 20.4 L (25.0-35.0) pg MCHC 28.4 L (31.0-37.0) g/dL RDW 21.2 H (11.5-15.5) % Plt Count 89 L (150-450) k/uL Lymphocytes # (Manual) 0.62 L (1.0-4.8) k/uL Nucleated RBCs 4 H (0-0) /100 WBC Sodium 134 L (137-145) mmol/L Chloride 95 L (98-107) mmol/L Carbon Dioxide 20 L (22-30) mmol/L BUN 65 H (9-20) mg/dL Creatinine 9.79 H* (0.66-1.25) mg/dL POC Glucose (mg/dL) 125 H (70-110) mg/dL Total Bilirubin 3.7 H (0.2-1.3) mg/dL Conjugated Bilirubin 1.3 H (0.0-0.3) mg/dL Delta Bilirubin 1.5 H (0.0-0.2) mg/dL AST 158 H (17-59) U/L ALT 106 H (4-49) U/L 06/11/22 06/11/22 06/12/22 Range/Units 17:58 20:27 00:24 Hgb (13.0-17.5) gm/dL Hct (39.0-53.0) % MCV (80.0-100.0) fL MCH (25.0-35.0) pg MCHC (31.0-37.0) g/dL RDW (11.5-15.5) % Plt Count (150-450) k/uL Lymphocytes # (Manual) (1.0-4.8) k/uL Nucleated RBCs (0-0) /100 WBC Sodium (137-145) mmol/L Chloride (98-107) mmol/L Carbon Dioxide (22-30) mmol/L BUN (9-20) mg/dL Creatinine (0.66-1.25) mg/dL POC Glucose (mg/dL) 128 H 125 H 111 H (70-110) mg/dL Total Bilirubin (0.2-1.3) mg/dL Conjugated Bilirubin (0.0-0.3) mg/dL Delta Bilirubin (0.0-0.2) mg/dL AST (17-59) U/L ALT (4-49) U/L Microbiology - Last 24 Hours (Table) 06/07/22 16:50 Blood Culture - Preliminary Blood No Growth after 96 hours 06/07/22 16:40 Blood Culture - Preliminary Blood No Growth after 96 hours Assessment and Plan (1) ESRD (end stage renal disease) Current Visit: Yes Status: Acute Code(s): N18.6 - END STAGE RENAL DISEASE SNOMED Code(s): 30309073 (2) Altered mental status Current Visit: Yes Status: Acute Code(s): R41.82 - ALTERED MENTAL STATUS, UNSPECIFIED SNOMED Code(s): 000769636 (3) Hypoglycemia Current Visit: Yes Status: Acute Code(s): E16.2 - HYPOGLYCEMIA, UNSPECIFIED SNOMED Code(s): 500231566 (4) Missed dialysis Current Visit: Yes Status: Acute Code(s): [id number] - SNOMED Code(s): 235287047 Plan: Consult nephrology for dialysis. Restart most of home medications. Check CBC and CMP in a.m. The patient seemingly back to his baseline when interviewed. Prognosis still guarded secondary to multiple comorbidities.
--- NOTE | 2022-06-12 10:27 | P.CRDCN ---
History of Present Illness Consult date: 06/12/22 History of present illness: HISTORY OF PRESENT ILLNESS: This is a 71-year-old male with a past medical history significant for polycystic kidney disease, end-stage renal disease on hemodialysis, hypertension, mild coronary artery disease, and cardiomyopathy. Patient used to see Dr. Solano but he states he has switched cardiologists but is unable to recall the name of who he currently sees. We have been asked to see the patient in consultation for abnormal troponins. Patient examined at the bedside. Patient is admitted to the hospital secondary to altered mental status and hypoglycemia. Patient had 1 elevated troponin on admission of 0.099. Patient denies any chest pain or pressure. He denies shortness of breath. Patient's vital signs are stable. Per nursing, he received hemodialysis yesterday. * EKG reveals sinus mechanism with PVCs * Chest xray cardiomegaly without acute pulmonary process * Laboratory data: WBC 6.9. Hemoglobin 9.3. Platelet count 89. Sodium 134. Potassium 4.0. BUN 65. Creatinine 9.79. * Current home cardiac medications include none * Most recent echocardiogram obtained in April 2021 revealed ejection fraction 3035%, moderate aortic regurgitation, normal RVSP * Patient underwent Lexiscan stress test in June 2016 which was negative for ischemia. Probably abnormal perfusion study with mild fixed defect involving the inferior septal wall and inferior basal segment that could represent previous myocardial infarction. * Cardiac catheterization history: July 2016 revealing mild coronary artery d isease REVIEW OF SYSTEMS: At the time of my exam: CONSTITUTIONAL: Denies fever or chills. HEENT: Denies blurred vision, vision changes, or eye pain. Denies hemoptysis CARDIOVASCULAR: Denies chest pain. Denies orthopnea. Denies PND. Denies palpitations RESPIRATORY: Denies shortness of breath. GASTROINTESTINAL: Denies abdominal pain. Denies nausea or vomiting. HEMATOLOGIC: Denies bleeding disorders. GENITOURINARY: Denies any blood in urine. SKIN: Denies pruitis. Denies rash. PHYSICAL EXAM: VITAL SIGNS: Reviewed. GENERAL: Well-developed in no acute distress. HEENT: Head is normocephalic. Pupils are equal, round. Sclerae anicteric. Mucous membranes of the mouth are moist. Neck supple. No JVD or thyromegaly LUNGS: Respirations even and unlabored. Lungs essentially clear to auscultation bilaterally. HEART: Regular rate and rhythm. S1 and S2 heard. ABDOMEN: Soft. Nondistended. Nontender. EXTREMITIES: Normal range of motion. No clubbing or cyanosis. Peripheral pulses intact. No lower extremity edema NEUROLOGIC: Awake and alert. Oriented x 2. ASSESSMENT: Altered mental status Hypoglycemia Polycystic kidney disease End-stage renal disease on hemodialysis Abnormal troponin, likely secondary to chronic kidney disease, no evidence of ACS Hypertension Mild coronary artery disease, per cardiac catheterization in 2016 History of nonischemic cardiomyopathy, EF 30-35 Elevated LFTs PLAN: Obtain 2D echo to assess cardiac structure and function Add aspirin 81mg daily Add metoprolol succinate 25 mg daily Check Lipid panel. Monitor LFTs. Patient would benefit from FLORENTINO/ARB secondary to hx of cardiomyopathy. Will re- evaluate tomorrow pending blood pressures. Further recommendations pending patient course Nurse practitioner note has been reviewed by physician. Signing provider agrees with the documented findings, assessment, and plan of care. Past Medical History Past Medical History: Heart Failure, Dialysis, Pneumonia, Renal Disease Additional Past Medical History / Comment(s): pts. fiance/POA states he has had pneumonia for the last 6 weeks, polycystic kidney disease History of Any Multi-Drug Resistant Organisms: None Reported Past Surgical History: Joint Replacement, Orthopedic Surgery Additional Past Surgical History / Comment(s): left knee replacement, plates/screws right foot, back surgery Past Anesthesia/Blood Transfusion Reactions: No Reported Reaction Smoking Status: Current every day smoker - Past Family History Son(s) Family Medical History: Renal Disease Additional Family Medical History / Comment(s): polysystic kidney disease Father Family Medical History: Renal Disease Additional Family Medical History / Comment(s): polyctstic kidney disease Medications and Allergies Home Medications Medication Instructions Recorded Confirmed Type ALPRAZolam [Xanax] 2 mg PO BID 06/07/22 06/07/22 History Albuterol Nebulized [Ventolin 2.5 mg INHALATION RT-QID PRN 06/07/22 06/07/22 History Nebulized] Amoxic-Pot Clav 500-125 mg 1 tab PO BID 06/07/22 06/07/22 History [Augmentin 500-125 mg] Calcium Acetate [Phoslo] 2,004 mg PO TID 06/07/22 06/07/22 History Cholecalciferol [Vitamin D3 (125 125 mcg PO DAILY 06/07/22 06/07/22 History Mcg = 5000 Iu)] Cyclobenzaprine [Flexeril] 10 mg PO TID 06/07/22 06/07/22 History Nora-Kathryn 1 tab PO DAILY 06/07/22 06/07/22 History Tiotropium Br/Olodaterol HCl 2 puff INHALATION RT-DAILY 06/07/22 06/07/22 History [Stiolto Respimat Inhal [place]] diphenhydrAMINE [Benadryl] 50 mg PO HS PRN 06/07/22 06/07/22 History methylPREDNISolone [Medrol Dose See Taper PO DIRECTED 06/07/22 06/07/22 History Pack] oxyCODONE-APAP 10-325MG [Percocet 1 tab PO Q4HR PRN 06/07/22 06/07/22 History 10-325 mg] Allergies Allergy/AdvReac Type Severity Reaction Status Date / Time No Known Allergies Allergy Verified 06/07/22 12:05 Physical Exam Vitals: Vital Signs Temp Pulse Pulse Resp BP Pulse Ox 06/12/22 08:00 97.7 F 80 16 131/68 100 06/12/22 07:47 57 L 06/12/22 07:33 44 L 100 06/12/22 03:55 98.0 F 83 14 122/63 100 06/12/22 00:20 98.4 F 90 15 130/76 100 06/11/22 19:30 98.8 F 94 12 127/75 98 06/11/22 16:00 51 L 18 152/77 100 06/11/22 15:35 81 06/11/22 15:22 83 100 06/11/22 12:05 108 H 18 06/11/22 12:00 97.8 F 108 H 18 159/78 95 06/11/22 11:40 98.0 F 80 21 146/72 06/11/22 11:06 92 06/11/22 10:55 88 Intake and Output 06/11/22 06/12/22 06/12/22 22:59 06:59 14:59 Intake Total 120 100 Balance 120 100 Intake: Oral 120 100 Other: # Voids 0 Results 06/11/22 07:10 06/11/22 07:10 Current Medications Generic Name Dose Route Start Last Admin Trade Name Freq PRN Reason Stop Dose Admin Albuterol Sulfate 2.5 mg 06/08/22 14:21 Albuterol Nebulized 2.5 Mg/3 Ml INHALATION RT-QID PRN Shortness Of Breath Or Wheezing Calcium Acetate 2,004 mg 06/08/22 17:30 06/12/22 06:20 Calcium Acetate 667 Mg Tab PO 2,004 mg TID-W/MEALS KARMEN Administration Cholecalciferol 125 mcg 06/09/22 09:00 06/12/22 08:12 Cholecalciferol 125 Mcg (5000 Iu) Tablet PO 125 mcg DAILY KARMEN Administration Cyclobenzaprine HCl 10 mg 06/08/22 16:00 06/12/22 08:12 Cyclobenzaprine 10 Mg Tab PO 10 mg TID KARMEN Administration Darbepoetin [place] 40 mcg 06/08/22 10:00 06/08/22 09:56 Darbepoetin [place] 40 Mcg/0.4 Ml Syringe SQ 40 mcg Q7D KARMEN Administration Famotidine 20 mg 06/11/22 21:00 06/11/22 20:20 Famotidine 20 Mg/2 Ml Vial IV Not Given HS [facility] Formoterol Fumarate 20 mcg 06/09/22 08:00 06/12/22 07:33 Formoterol Fumarate 20 Mcg/2 Ml Nebu INHALATION 20 mcg RT-BID KARMEN Administration Glucose 4 gm 06/09/22 18:00 06/12/22 08:12 Dextrose 4 Gm Chewable PO 4 gm QID KARMEN Administration Heparin Sodium (Porcine) 5,000 unit 06/11/22 21:00 06/12/22 08:12 Heparin Sodium,Porcine/Pf 5,000 Unit/0.5 Ml Syringe SQ 5,000 unit Q12HR KARMEN Administration Ipratropium [place] 0.5 mg 06/09/22 08:00 06/12/22 07:33 Ipratropium 0.5 Mg/2.5 Ml Nebu INHALATION 0.5 mg RT-QID KARMEN Administration Lorazepam 0.5 mg 06/07/22 23:04 06/08/22 15:50 Lorazepam 1 Mg/0.5 Ml Vial IV 0.5 mg Q6HR PRN Administration Agitation Lorazepam 0.5 mg 06/09/22 00:15 06/09/22 05:49 Lorazepam 0.5 Mg Tab PO 0.5 mg Q6H PRN Administration Agitation Multivit/Ca Carb/B Cmplx/FA/Prenat 1 each 06/09/22 09:00 06/12/22 08:12 Folic Acid-Vit B Complex-Vit C 1 Cap PO 1 each DAILY KARMEN Administration Oxycodone/Acetaminophen 1 each 06/08/22 14:21 06/11/22 17:20 Oxycodone-Apap 10-325mg 1 Each Tab PO 1 each Q4HR PRN Administration Pain Intake and Output 06/11/22 06/12/22 06/12/22 22:59 06:59 14:59 Intake Total 120 100 Balance 120 100 Intake: Oral 120 100 Other: # Voids 0 06/11/22 07:10 06/11/22 07:10
[2022-06-12 11:50] LABS: Glucose,Whole Blood 121 mg/dL (70-110)
[2022-06-12] MEDS: METOPROLOL SUCCINATE (ER) 25 MG TAB.ER.24H PO SCH (12:17)
[2022-06-12 19:02] LABS: Chol/HDL Ratio 5.51 Ratio; LDL Cholesterol,Calculated 69.9 mg/dL (0.0-131.0)
[2022-06-12 19:09] LABS: Glucose,Whole Blood 141 mg/dL (70-110)
[2022-06-12] MEDS: FAMOTIDINE 20 MG/2 ML VIAL IV SCH (19:57)
[2022-06-12] MEDS: oxyCODONE-APAP 10-325MG 1 EACH TAB PO PRN (20:08)
[2022-06-13 00:03] LABS: Glucose,Whole Blood 109 mg/dL (70-110)
[2022-06-13 06:02] LABS: Glucose,Whole Blood 102 mg/dL (70-110)
[2022-06-13] MEDS: CALCIUM ACETATE 667 MG TAB PO SCH ×3 (06:43→17:48)
[2022-06-13] MEDS: FORMOTEROL FUMARATE 20 MCG/2 ML NEBU INHALATION SCH ×2 (08:27→21:14)
[2022-06-13] MEDS: IPRATROPIUM 0.5 MG/2.5 ML NEBU INHALATION SCH ×4 (08:27→21:14)
--- NOTE | 2022-06-13 08:40 | P.PN ---
Subjective Principal diagnosis: The patient was essentially admitted for altered mental status and hypoglycemia. The patient still seems a little bit off to me today. Nutrition status improved. But sugar stabilizing. No voiding difficulties. Cognitive skill seems improved today. Objective - Vital Signs Vital signs: Vital Signs Temp 98.1 F 06/13/22 03:31 Pulse 80 06/13/22 08:30 Resp 16 06/13/22 03:31 BP 103/63 06/13/22 03:31 Pulse Ox 100 06/13/22 08:31 FiO2 Intake & Output 06/12/22 06/13/22 06/13/22 18:59 06:59 18:59 Intake Total 480 Output Total 0 Balance 480 Weight 89.5 kg 81 kg Intake: Oral 480 Output: Urine 0 - Constitutional General appearance: Present: average body habitus - EENT Eyes: Absent: abnormal pupil - Neck Neck: Absent: lymphadenopathy - Respiratory Respiratory: bilateral: CTA - Cardiovascular Rhythm: regular Heart sounds: normal: S1, S2 Abnormal Heart Sounds: Absent: S3 Gallop - Gastrointestinal General gastrointestinal: Present: soft. Absent: tenderness - Integumentary Integumentary: Absent: cellulitis - Musculoskeletal Musculoskeletal: Present: generalized weakness - Psychiatric Psychiatric: Present: appropriate affect - Labs CBC & Chem 7: 06/11/22 07:10 06/11/22 07:10 Labs: Abnormal Lab Results - Last 24 Hours (Table) 06/11/22 06/12/22 06/12/22 Range/Units 07:10 11:48 18:05 POC Glucose (mg/dL) 121 H 141 H (70-110) mg/dL HDL Cholesterol 20.50 L (40.00-60.00) mg/dL Microbiology - Last 24 Hours (Table) 06/07/22 16:40 Blood Culture - Preliminary Blood No Growth after 120 hours 06/07/22 16:50 Blood Culture - Preliminary Blood No Growth after 120 hours Assessment and Plan (1) ESRD (end stage renal disease) Current Visit: Yes Status: Acute Code(s): N18.6 - END STAGE RENAL DISEASE SNOMED Code(s): 14192022 (2) Altered mental status Current Visit: Yes Status: Acute Code(s): R41.82 - ALTERED MENTAL STATUS, UNSPECIFIED SNOMED Code(s): 011764100 (3) Hypoglycemia Current Visit: Yes Status: Acute Code(s): E16.2 - HYPOGLYCEMIA, UNSPECIFIED SNOMED Code(s): 899094478 (4) Missed dialysis Current Visit: Yes Status: Acute Code(s): SWZ7795 - SNOMED Code(s): 846294028 Plan: Consult neurology for completeness I feel the patient is improved. Anticipate discharge to ECF versus home in the next 24 hours. Continue dialysis.
[2022-06-13] MEDS: METOPROLOL SUCCINATE (ER) 25 MG TAB.ER.24H PO SCH (08:57)
[2022-06-13] MEDS: ASPIRIN 81 MG PO SCH (08:57)
[2022-06-13] MEDS: CYCLOBENZAPRINE 10 MG TAB PO SCH ×3 (08:57→20:34)
[2022-06-13] MEDS: CHOLECALCIFEROL 125 MCG (5000 IU) TABLET PO SCH (08:57)
[2022-06-13] MEDS: HEPARIN SODIUM,PORCINE/PF 5,000 UNIT/0.5 ML SYRINGE SQ SCH ×2 (08:57→20:34)
[2022-06-13] MEDS: DEXTROSE 4 GM CHEWABLE PO SCH ×4 (08:58→20:34)
[2022-06-13] MEDS: FOLIC ACID-VIT B COMPLEX-VIT C 1 CAP PO SCH (08:58)
[2022-06-13] MEDS: oxyCODONE-APAP 10-325MG 1 EACH TAB PO PRN ×2 (09:07→13:53)
[2022-06-13 09:32] LABS: Anisocytosis Moderate; HCT 34.8 % (39.0-53.0); HGB 9.4 gm/dL (13.0-17.5); Hypochromasia Marked; MCH 19.5 pg (25.0-35.0); MCV 72.2 fL (80.0-100.0); Mean Platelet Volume 7.2; Microcytosis Marked; Platelet Count 114 k/uL (150-450); Poikilocytosis Slight; RBC 4.83 m/uL (4.30-5.90); RDW 21.5 % (11.5-15.5); WBC 7.3 k/uL (3.8-10.6)
[2022-06-13 09:45] LABS: Calcium 9.5 mg/dL (8.4-10.2); Total Bilirubin 3.1 mg/dL (0.2-1.3); Total Protein 8.3 g/dL (6.3-8.2)
--- NOTE | 2022-06-13 09:49 | P.CONS ---
History of Present Illness - Reason for Consult Consult date: 06/12/22 Goals of care, ESRD Requesting physician: Hema Oliva - Chief Complaint Altered menatls status - History of Present Illness This is a 71-year-old male with past medical history significant for polycystic kidney disease, end-stage renal disease on hemodialysis, hypertension, mild coronary artery disease, and cardiomyopathy. The patient is on dialysis 3 days a week, he missed dialysis on 06/06/22. Significant other found the patient unresponsive on 06/07/22 and called EMS. EMS stated the patient's blood sugar was extremely low in the 40s but they were unable to get a line so they gave him oral glucose but had no effect so they brought to the emergency department. The re is no history of diabetes per the significant other. The patient continued to have episodes of significant hypoglycemia due to poor oral intake. He had been getting IV dextrose for markedly low blood sugars. The patient is more awake now and eating better, glucose has stabilized. Despite his stable blood sugars, he still remains confused. Also, upon admission his troponin was elevated 0.9, no p revious cardiac history in this facility. Denied any chest pain. Cardiology consulted and following patient. 2D echo pending to assess cardiac structure and function. Review of Systems Constitutional: Reports as per HPI Past Medical History Past Medical History: Heart Failure, Dialysis, Pneumonia, Renal Disease Additional Past Medical History / Comment(s): pts. fiance/POA states he has had pneumonia for the last 6 weeks, polycystic kidney disease History of Any Multi-Drug Resistant Organisms: None Reported Past Surgical History: Joint Replacement, Orthopedic Surgery Additional Past Surgical History / Comment(s): left knee replacement, plates/screws right foot, back surgery Past Anesthesia/Blood Transfusion Reactions: No Reported Reaction Smoking Status: Current every day smoker - Past Family History Son(s) Family Medical History: Renal Disease Additional Family Medical History / Comment(s): polysystic kidney disease Father Family Medical History: Renal Disease Additional Family Medical History / Comment(s): polyctstic kidney disease Medications and Allergies Home Medications Medication Instructions Recorded Confirmed Type ALPRAZolam [Xanax] 2 mg PO BID 06/07/22 06/07/22 History Albuterol Nebulized [Ventolin 2.5 mg INHALATION RT-QID PRN 06/07/22 06/07/22 History Nebulized] Amoxic-Pot Clav 500-125 mg 1 tab PO BID 06/07/22 06/07/22 History [Augmentin 500-125 mg] Calcium Acetate [Phoslo] 2,004 mg PO TID 06/07/22 06/07/22 History Cholecalciferol [Vitamin D3 (125 125 mcg PO DAILY 06/07/22 06/07/22 History Mcg = 5000 Iu)] Cyclobenzaprine [Flexeril] 10 mg PO TID 06/07/22 06/07/22 History Nora-Kathryn 1 tab PO DAILY 06/07/22 06/07/22 History Tiotropium Br/Olodaterol HCl 2 puff INHALATION RT-DAILY 06/07/22 06/07/22 Hi story [Stiolto Respimat Inhal [place]] diphenhydrAMINE [Benadryl] 50 mg PO HS PRN 06/07/22 06/07/22 History methylPREDNISolone [Medrol Dose See Taper PO DIRECTED 06/07/22 06/07/22 History Pack] oxyCODONE-APAP 10-325MG [Percocet 1 tab PO Q4HR PRN 06/07/22 06/07/22 History 10-325 mg] Allergies Allergy/AdvReac Type Severity Reaction Status Date / Time No Known Allergies Allergy Verified 06/07/22 12:05 Physical Exam Vitals: Vital Signs Temp Pulse Pulse Resp BP Pulse Ox 06/12/22 12:00 97.7 F 90 16 134/76 99 06/12/22 11:18 79 06/12/22 11:08 81 06/12/22 08:00 97.7 F 80 16 131/68 100 06/12/22 07:47 57 L 06/12/22 07:33 44 L 100 06/12/22 03:55 98.0 F 83 14 122/63 100 06/12/22 00:20 98.4 F 90 15 130/76 100 06/11/22 19:30 98.8 F 94 12 127/75 98 06/11/22 16:00 51 L 18 152/77 100 06/11/22 15:35 81 06/11/22 15:22 83 100 Intake and Output 06/11/22 06/12/22 06/12/22 22:59 06:59 14:59 Intake Total 120 100 Balance 120 100 Intake: Oral 120 100 Other: # Voids 0 Weight 89.5 kg General: Well developed, well nourished. No acute distress. Chronically ill appearing HEENT: Head is atraumatic, normocephalic. Sclerae are clear. Pupils equal, round and reactive to light bilaterally. Mucus membranes moist. CV: Heart regular in rate and rhythm positive S1 and S2. No clicks, rubs or murmurs. Peripheral pulses equal. 2/4. Lungs: Clear to auscultation bilaterally. No wheezes rales or rhonchi. Respirations even and nonlabored. On RA Abdomen/GI: Soft. Bowel sounds present in all 4 quadrants.No gaurding, rigidity, or abdominal tenderness. Musculoskeletal/ Extremities: CONNELL, no joint deformity or swelling. No gross atrophy. + generalized weakness Vascular: Radial pulses equal. 2/4. No peripheral edema Skin: Warm and dry, No rash or lesions. Neurologic: Awake, alert and oriented times 2. CN II-XII grossly intact. No focal deficits. Psychiatric: Appropriate mood and affect. Results CBC & Chem 7: 06/13/22 08:09 06/11/22 07:10 Labs: Abnormal Lab Results - Last 24 Hours (Table) 06/11/22 06/11/22 06/11/22 Range/Units 13:58 17:58 20:27 POC Glucose (mg/dL) 125 H 128 H 125 H (70-110) mg/dL 06/12/22 06/12/22 Range/Units 00:24 11:48 POC Glucose (mg/dL) 111 H 121 H (70-110) mg/dL Microbiology - Last 24 Hours (Table) 06/07/22 16:50 Blood Culture - Preliminary Blood No Growth after 96 hours 06/07/22 16:40 Blood Culture - Preliminary Blood No Growth after 96 hours Chest x-ray: report reviewed CT Scan - head: report reviewed Assessment and Plan Assessment: * Due to patients confusion, information was obtained from patient, EMR, and significant other, Jasmine Social * 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 1 son who lives in [place], 1 son who lives in [place], and a daughter who Oct 2021 * Residence - 1 story duplex * Who do you reside with - Significant other, Jasmine * ETOH - Rare * Tobacco - Current every day smoker, 10/10ppd * Illicit drugs - No Spiritual/Cultural * A spiritual person - Yes * Sikhism - Amish * Belong to a particular islam - No * Beliefs a source of comfort and strength - Yes * Sikhism or cultural practices restrictions - No * EOL considerations/rituals - No Functional Assessment * Able to walk independently - patient can walk independently for short distances with a cane, required assistance with stairs * Assistive devices - Cane, walker, and wheelchair * Able to use the bathroom independently - * Continent - Anuric, continent with BM * Require assistance bathing- Yes, patient has a caregiver that comes 7 da ys/week to assist with personal care * Able to feed self - yes * Who prepares meals - significant other * How many meals a day eaten - 1 meal + snacks * What percentage of meals eaten daily - > 50% * Able to clean house/do laundry - No, significant other and health care sanitary technician do * Transportation - Patient still drove up until a couple months ago. He uses medical transportation to dialysis, significant other is also available for transportation * Able to shop - yes, with electric scooter * Who manages medications - caregiver * Who manages finances -patient and significant other Psychological/Emotional * Dementia present - yes * Insight and judgment - not intact * Depression - no * Suicidal thoughts - no * Good support system - yes * Patients goals - optimize functionality * Frequent hospitalizations - no * Desire to keep coming back to the hospital for treatment - yes Symptoms * Pain - + pain in his right toes, continue oxycodone and flexeril for chronic pain * Fatigue - + generalized weakness and fatigue, continue Arenesp, and PT/OT * SOB - No, continue Atrovent, Albuterol, and Perforomist * Insomnia - No * N/V - No * Anxiety - No * Depression - No * Confusion - Yes, monitor blood sugars closely * Agitation - Occasional agitation, continue Ativan prn * Hallucinations - No * Appetite/weight loss - + decreased appetite, + malnutrition 2/2 poor oral intake. Continue Renal diet, encourage oral intake and continue glucose tabs prn to maintain blood sugar. Lamp Cleaner following. * Dysphagia - No * Constipation - LBM / * Incontinence - Anuric, continent with BMs * Itch - No Plan: Summary/Goals - Patient resting in bed and appears comfortable. He is oriented x [address]. He is not oriented to situation and does not know why he is on the hospital. Spoke with his significant other, Jasmine, via telephone. She is the patient's POA. She stated she has not been up to visit the patient for the last two days because the patient gets agitated and thinks he is going home. Education regarding his chronic diseases and current status provided. She is very concerned that despite his blood sugars stabilizing, he is still more confused than his baseline. She is worried that with his weakness and altered mental status, she may not be able to care for him at home. Per OT, the patient presents with more cognitive limitations than physical limitations. Needs frequent re-direction as attention to task is variable with very limited short term memory and similar problem solving limitations. Unable to follow two step directions. Needed minimal assist with all ADL and repeated instruction and redirection. Attending physician notified of concerns. A consult for Neurology was placed. Both the patient and Jasmine stated his goals of care would be to optimize his functionality and continue dialysis. Code status also discussed in detail. Jasmine states the patient is to remain a full code per the patient's wishes. The patient may benefit from a NANCY vs going home. finance effectiveness manager notified that the Jasmine is considering this option. Information was provided regarding palliative care philosophies and services. Jasmine stated she would like to continue with palliative care once the patient is discharged. Recommendations - NANCY with OP palliative care Advanced Directives - No Code Status - Full code Thank you for this consult Minnie Cook [facility] [place] [id number] Email: [email or web address] Time with Patient: Greater than 30
--- NOTE | 2022-06-13 10:08 | CA ---
Transthoracic Echo Report Name: Jacques Blank Age: 71 Gender: M : 1950 Exam Date: 06/12/2022 10:37 Exam Location: [place] Echo Ht (in): 68 Wt (lb): 197 Ordering Physician: Bri Pabon Attending/Referring Phys: [id number], Cm Aoc Director Combat Plans Officer Vianca Ortega RDCS Procedure CPT: Indications: LV function Cardiac Hx: Technical Quality: Good Contrast 1: Total Dose (mL): Contrast 2: Total Dose (mL): MEASUREMENTS (Male / Female) Normal Values 2D ECHO LV Diastolic Diameter PLAX 5.6 cm 4.2 - 5.9 / 3.9 - 5.3 cm LV Systolic Diameter PLAX 4.8 cm IVS Diastolic Thickness 1.5 cm 0.6 - 1.0 / 0.6 - 0.9 cm LVPW Diastolic Thickness 1.4 cm 0.6 - 1.0 / 0.6 - 0.9 cm LV Relative Wall Thickness 0.5 RV Internal Dim ED PLAX 4.0 cm LA Systolic Diameter LX 3.8 cm 3.0 - 4.0 / 2.7 - 3.8 cm LA Volume 86.1 cm??? 18 - 58 / 22 - 52 cm??? M-MODE Aortic Root Diameter MM 3.4 cm MV E Point Septal Separation 2.1 cm AV Cusp Separation MM 1.5 cm DOPPLER AV Peak Velocity 231.1 cm/s AV Peak Gradient 21.4 mmHg AV Mean Velocity 169.9 cm/s AV Mean Gradient 12.9 mmHg AV Velocity Time Integral 42.4 cm AI Peak Velocity 381.1 cm/s AI Peak Gradient 58.1 mmHg AI Pressure Half Time 470.9 ms LVOT Peak Velocity 96.5 cm/s LVOT Peak Gradient 3.7 mmHg MV Area PHT 5.7 cm??? Mitral E Point Velocity 130.0 cm/s Mitral A Point Velocity 70.8 cm/s Mitral E to A Ratio 1.8 MV Deceleration Time 132.9 ms MV E' Velocity 4.9 cm/s Mitral E to MV E' Ratio 26.7 TR Peak Velocity 307.4 cm/s TR Peak Gradient 37.8 mmHg Right Ventricular Systolic Press 51.7 mmHg FINDINGS Left Ventricle Left ventricular ejection fraction is estimated at 30-35 %. Left ventricular cavity size normal. Moderate concentric left ventricular hypertrophy. Right Ventricle Severe right ventricular dilatation. Moderate pulmonary hypertension. Right Atrium Normal right atrial size. Left Atrium Severely increased left atrial volume. Mildly increased left atrial area. No evidence for an atrial septal defect. Mitral Valve Mitral valve thickened. [id number] mitral regurgitation. Aortic Valve Focal thickening of the aortic valve cusps. Moderate aortic regurgitation. Mild aortic stenosis with a peak gradient of 21 mmHg and a mean gradient of 13 mmHg. Tricuspid Valve [id number] tricuspid regurgitation. Pulmonic Valve Mild pulmonic regurgitation. Pericardium Normal pericardium. Aorta Normal size aortic root and proximal ascending aorta. CONCLUSIONS Left ventricle is at upper limits of normal with the global decrease in contractility is to ejection fraction of 30-35%. There is moderate aortic regurgitation with mild aortic stenosis. There is mitral annular calcification with mild to moderate mitral regurgitation. Moderate pulmonary hypertension Previewed by: Dr. Angelina Lujan MD (Electronically Signed) Final Date: 13 June 2022 10:08
--- NOTE | 2022-06-13 10:31 | P.PN ---
Subjective Progress Note Date: 06/13/22 HISTORY OF PRESENT ILLNESS: This is a 71-year-old male with a past medical history significant for polycystic kidney disease, end-stage renal disease on hemodialysis, hypertension, mild coronary artery disease, and cardiomyopathy. Patient used to see Dr. Solano but he states he has switched cardiologists but is unable to recall the name of who he currently sees. We have been asked to see the patient in consultation for abnormal troponins. Patient examined at the bedside. Patient is admitted to the hospital secondary to altered mental status and hypoglycemia. Patient had 1 elevated troponin on admission of 0.099. Patient denies any chest pain or pressure. He denies shortness of breath. Patient's vital signs are stable. Per nursing, he received hemodialysis yesterday. * EKG reveals sinus mechanism with PVCs * Chest xray cardiomegaly without acute pulmonary process * Laboratory data: WBC 6.9. Hemoglobin 9.3. Platelet count 89. Sodium 134. Potassium 4.0. BUN 65. Creatinine 9.79. * Current home cardiac medications include none * Most recent echocardiogram obtained in April 2021 revealed ejection fraction 3035%, moderate aortic regurgitation, normal RVSP * Patient underwent Lexiscan stress test in June 2016 which was negative for ischemia. Probably abnormal perfusion study with mild fixed defect involving the inferior septal wall and inferior basal segment that could represent previous myocardial infarction. * Cardiac catheterization history: July 2016 revealing mild coronary artery disease 06/13/2022 Patient examined this morning at the bedside. Patient denies chest pain or pressure. Denies SOB. Patient refusing telemetry monitoring. 2D echo is pending. Vital signs are stable. PHYSICAL EXAM: VITAL SIGNS: Reviewed. GENERAL: Well-developed in no acute distress. HEENT: Head is normocephalic. Pupils are equal, round. Sclerae anicteric. Mucous membranes of the mouth are moist. Neck supple. No JVD or thyromegaly LUNGS: Respirations even and unlabored. Lungs essentially clear to auscultation bilaterally. HEART: Regular rate and rhythm. S1 and S2 heard. ABDOMEN: Soft. Nondistended. Nontender. EXTREMITIES: Normal range of motion. No clubbing or cyanosis. Peripheral pulses intact. No lower extremity edema NEUROLOGIC: Awake and alert. Oriented x 2. ASSESSMENT: Altered mental status Hypoglycemia Polycystic kidney disease End-stage renal disease on hemodialysis Abnormal troponin, likely secondary to chronic kidney disease, no evidence of ACS Hypertension Mild coronary artery disease, per cardiac catheterization in 2016 History of nonischemic cardiomyopathy, EF 30-35 Elevated LFTs PLAN: 2D echo ordered. Await results. Continue current cardiac medications Patient would benefit from FLORENTINO/ARB secondary to hx of cardiomyopathy. Will re- evaluate on an outpatient basis pending blood pressures. Further recommendations pending patient course Nurse practitioner note has been reviewed by physician. Signing provider agrees with the documented findings, assessment, and plan of care. Objective - Vital Signs Vital signs: Vital Signs Temp 97.5 F L 06/13/22 08:49 Pulse 79 06/13/22 08:49 Resp 16 06/13/22 08:49 BP 118/59 06/13/22 08:49 Pulse Ox 100 06/13/22 08:49 FiO2 Intake & Output 06/12/22 06/13/22 06/13/22 18:59 06:59 18:59 Intake Total 480 Output Total 0 Balance 480 Weight 89.5 kg 81 kg Intake: Oral 480 Output: Urine 0 - Labs CBC & Chem 7: 06/13/22 08:09 06/13/22 08:09 Labs: Abnormal Lab Results - Last 24 Hours (Table) 06/11/22 06/12/22 06/12/22 Range/Units 07:10 11:48 18:05 Hgb (13.0-17.5) gm/dL Hct (39.0-53.0) % MCV (80.0-100.0) fL MCH (25.0-35.0) pg MCHC (31.0-37.0) g/dL RDW (11.5-15.5) % Plt Count (150-450) k/uL Sodium (137-145) mmol/L Chloride (98-107) mmol/L BUN (9-20) mg/dL Creatinine (0.66-1.25) mg/dL Glucose (74-99) mg/dL POC Glucose (mg/dL) 121 H 141 H (70-110) mg/dL Total Bilirubin (0.2-1.3) mg/dL AST (17-59) U/L ALT (4-49) U/L Total Protein (6.3-8.2) g/dL HDL Cholesterol 20.50 L (40.00-60.00) mg/dL 06/13/22 06/13/22 Range/Units 08:09 08:09 Hgb 9.4 L (13.0-17.5) gm/dL Hct 34.8 L (39.0-53.0) % MCV 72.2 L (80.0-100.0) fL MCH 19.5 L (25.0-35.0) pg MCHC 27.0 L (31.0-37.0) g/dL RDW 21.5 H (11.5-15.5) % Plt Count 114 L (150-450) k/uL Sodium 135 L (137-145) mmol/L Chloride 94 L (98-107) mmol/L BUN 54 H (9-20) mg/dL Creatinine 9.28 H* (0.66-1.25) mg/dL Glucose 102 H (74-99) mg/dL POC Glucose (mg/dL) (70-110) mg/dL Total Bilirubin 3.1 H (0.2-1.3) mg/dL AST 73 H (17-59) U/L ALT 73 H (4-49) U/L Total Protein 8.3 H (6.3-8.2) g/dL HDL Cholesterol (40.00-60.00) mg/dL Microbiology - Last 24 Hours (Table) 06/07/22 16:40 Blood Culture - Preliminary Blood No Growth after 120 hours 06/07/22 16:50 Blood Culture - Preliminary Blood No Growth after 120 hours
[2022-06-13 11:42] LABS: Glucose,Whole Blood 121 mg/dL (70-110)
--- NOTE | 2022-06-13 13:13 | P.PN ---
Subjective Progress Note Date: 06/13/22 Principal diagnosis: hypoglycemia, altered mental status This is a 71-year-old male with past medical history significant for polycystic kidney disease, end-stage renal disease on hemodialysis, hypertension, mild coronary artery disease, and cardiomyopathy. The patient is on dialysis 3 days a week, he missed dialysis on 06/06/22. Significant other found the patient unr esponsive on 06/07/22 and called EMS. EMS stated the patient's blood sugar was extremely low in the 40s but they were unable to get a line so they gave him oral glucose but had no effect so they brought to the emergency department. There is no history of diabetes per the significant other. The patient continued to have episodes of significant hypoglycemia due to poor oral intake. He had been getting IV dextrose for markedly low blood sugars. The patient is more awake now and eating better, glucose has stabilized. Despite his stable blood sugars, he still remains confused. Also, upon admission his troponin was elevated 0.9, no previous cardiac history in this facility. Denied any chest pain. Cardiology consulted and following patient. 2D echo pending to assess cardiac structure and function. 06/12 Patient resting in bed and appears comfortable. He is oriented x [address]. He is not oriented to situation and does not know why he is on the hospital. Spoke with his significant other, Jasmine, via telephone. She is the patient's POA. She stated she has not been up to visit the patient for the last two days because the patient gets agitated and thinks he is going home. Education regarding his chronic diseases and current status provided. She is very concerned that despite his blood sugars stabilizing, he is still more confused than his baseline. She is worried that with his weakness and altered mental status, she may not be able to care for him at home. Per OT, the patient presents with more cognitive limitations than physical limitations. Needs frequent re-direction as attention to task is variable with very limited short term memory and similar problem solving limitations. Unable to follow two step directions. Needed minimal assist with all ADL and repeated instruction and redirection. Attending physician notified of concerns. A consult for Neurology was placed. Both the patient and Jasmine stated his goals of care would be to optimize his functionality and continue dialysis. Code status also discussed in detail. Jasmine states the patient is to remain a full code per the patient's wishes. The patient may benefit from a [facility] vs going home. foundation relations manager notified that the Jasmine is considering this option. Information was provided regarding palliative care philosophies and services. Jasmine stated she would like to continue with palliative care once the patient is discharged. Objective - Vital Signs Vital signs: Vital Signs Temp 97.8 F 06/13/22 11:53 Pulse 78 06/13/22 11:53 Resp 16 06/13/22 11:53 BP 106/65 06/13/22 11:53 Pulse Ox 99 06/13/22 11:53 FiO2 Intake & Output 06/12/22 06/13/22 06/13/22 18:59 06:59 18:59 Intake Total 480 Output Total 0 Balance 480 Weight 89.5 kg 81 kg Intake: Oral 480 Output: Urine 0 - Exam General: Well developed, well nourished. No acute distress. Chronically ill appearing HEENT: Head is atraumatic, normocephalic. Sclerae are clear. Pupils equal, round and reactive to light bilaterally. Mucus membranes moist. CV: Heart regular in rate and rhythm positive S1 and S2. No clicks, rubs or murmurs. Peripheral pulses equal. 2/4. Lungs: Clear to auscultation bilaterally. No wheezes rales or rhonchi. Respirations even and nonlabored. On RA Abdomen/GI: Soft. Bowel sounds present in all 4 quadrants.No guarding, rigidity, or abdominal tenderness. Musculoskeletal/ Extremities: CONNELL, no joint deformity or swelling. No gross atrophy. + generalized weakness Vascular: Radial pulses equal. 2/4. No peripheral edema. left upper am AV fistula Skin: Warm and dry, No rash or lesions. Neurologic: Awake, alert and oriented times 2. CN II-XII grossly intact. No focal deficits. Psychiatric: Appropriate mood and affect. - Labs CBC & Chem 7: 06/13/22 08:09 06/13/22 08:09 Labs: Abnormal Lab Results - Last 24 Hours (Table) 06/11/22 06/12/22 06/13/22 Range/Units 07:10 18:05 08:09 Hgb 9.4 L (13.0-17.5) gm/dL Hct 34.8 L (39.0-53.0) % MCV 72.2 L (80.0-100.0) fL MCH 19.5 L (25.0-35.0) pg MCHC 27.0 L (31.0-37.0) g/dL RDW 21.5 H (11.5-15.5) % Plt Count 114 L (150-450) k/uL Sodium (137-145) mmol/L Chloride (98-107) mmol/L BUN (9-20) mg/dL Creatinine (0.66-1.25) mg/dL Glucose (74-99) mg/dL POC Glucose (mg/dL) 141 H (70-110) mg/dL Total Bilirubin (0.2-1.3) mg/dL AST (17-59) U/L ALT (4-49) U/L Total Protein (6.3-8.2) g/dL HDL Cholesterol 20.50 L (40.00-60.00) mg/dL 06/13/22 06/13/22 Range/Units 08:09 11:40 Hgb (13.0-17.5) gm/dL Hct (39.0-53.0) % MCV (80.0-100.0) fL MCH (25.0-35.0) pg MCHC (31.0-37.0) g/dL RDW (11.5-15.5) % Plt Count (150-450) k/uL Sodium 135 L (137-145) mmol/L Chloride 94 L (98-107) mmol/L BUN 54 H (9-20) mg/dL Creatinine 9.28 H* (0.66-1.25) mg/dL Glucose 102 H (74-99) mg/dL POC Glucose (mg/dL) 121 H (70-110) mg/dL Total Bilirubin 3.1 H (0.2-1.3) mg/dL AST 73 H (17-59) U/L ALT 73 H (4-49) U/L Total Protein 8.3 H (6.3-8.2) g/dL HDL Cholesterol (40.00-60.00) mg/dL Microbiology - Last 24 Hours (Table) 06/07/22 16:40 Blood Culture - Preliminary Blood No Growth after 120 hours 06/07/22 16:50 Blood Culture - Preliminary Blood No Growth after 120 hours Assessment and Plan Assessment: Symptoms * Pain - + pain in his right foot, continue oxycodone and flexeril for chronic pain * Fatigue - + generalized weakness and fatigue, continue Arenesp, and PT/OT * SOB - No, continue Atrovent, Albuterol, and Perforomist * Insomnia - No * N/V - No * Anxiety - No * Depression - No * Confusion - Yes, monitor blood sugars closely * Agitation - Occasional agitation, continue Ativan prn * Hallucinations - No * Appetite/weight loss - + decreased appetite, + malnutrition 2/2 poor oral intake. Continue Renal diet, encourage oral intake and continue glucose tabs prn to maintain blood sugar. Apprentice Pattern Maker following. * Dysphagia - No * Constipation - LBM 06/11 * Incontinence - Anuric, continent with BMs * Itch - No Plan: Summary/Goals - The paient was asleep in his bed, but awakens easily. He is oriented to himself and place. He stated in is October. He appears to be oriented until you have a conversation with him. When asked if Dr. Jerome has been in yet today, he started to tell me that he has been in, but then proceeded to tell me that Dr. Jerome is confident that the hospital is ok and the only thing keeping him here is attention and something is going on at school. He rambles on and his thoughts are nonsensical. Awaiting neurology's consult. The patient is receiving hemodialysis today. Attempted to reach Jasmine via telephone, left voicemail. The plan remains to send the patient to [facility] and OP palliative care. foundation relations manager working on placement. Recommendations - [facility] with OP palliative care Advanced Directives - No Code Status - Full code Thank you for this consult Minnie Cook [facility] [id number] Email: [email or web address] Time with Patient: Less than 30
--- NOTE | 2022-06-13 13:54 | P.CNNES ---
History of Present Illness Consult date: 06/13/22 Requesting physician: Juan Manuel Jerome Reason for Consult: Altered mental status History of Present Illness: Patient is a 71-year-old male with history of end-stage renal disease on hemodialysis, came to the hospital by ambulance on 06/07/2022 after he has missed dialysis. His last dialysis was on 06/04/2022. Patient's blood sugar at the scene was 29. Pulse rate 93, respiration 20. Patient was somewhat combative at the scene. Vital signs on arrival blood pressure was 162/104, pulse rate 104 and temperature 95.2 temporal artery site, 97.2 tympanic. Patient's fingerstick blood glucose on arrival was 26, whereas the Chem-20 on arrival shows blood glucose of <20. Patient had another episode of slightly dec reased glucose of 44 on 06/09/2022. Neurology was consulted for altered mental status. Patient states that he has bad right foot for couple years. He states that he fell due to tripping over something, and felt he did pass out. Denies any tongue bite or any history of seizures. Patient states that he has been on dialysis for last 5 years. Patient denies any headache, dizziness or any focal symptoms. Per nurse report, patient has been confused slightly at night but during the daytime he is fine. No seizures reported. He states that he lives with his girlfriend and his daughter. He does use a cane. Patient states that he gets dialysis every Saturday and Saturday for last 5 years. Patient's blood test shows WBC 7.3 hemoglobin 9.4, platelets are 14. Sodium is 134 potassium 4.0, BUN 65 creatinine 9.79. AST is 158, ALT 106. Ammonia is normal. LDL is 69. CT head from 06/07/2022 shows no acute intracranial processes. No significant change from prior exam. Nonspecific bipedal changes likely secondary to chronic small vessel ischemic disease. I personally reviewed CT head, agree with the findings. 2-D echo showed left ventricle is at upper limits of normal with the global disease in contractility is to ejection fraction of 30-35%. There is moderate aortic regurgitation with mild aortic stenosis. There is mitral annular calcification with mild to moderate MR. Moderate pulmonary hypertension. Chest x-ray showed cardiomegaly without acute pulmonary process. Review of Systems Constitutional: Denies chills, Denies fever Eyes: denies blurred vision, denies pain Ears, nose, mouth and throat: Denies headache, Denies sore throat Cardiovascular: Denies chest pain, Denies shortness of breath Respiratory: Denies cough Gastrointestinal: Denies abdominal pain, Denies diarrhea, Denies nausea, Denies vomiting Musculoskeletal: Denies myalgias Integumentary: Reports pruritus, Denies rash Neurological: Reports as per HPI Psychiatric: Denies anxiety, Denies depression Endocrine: Denies fatigue, Denies weight change Hematologic/Lymphatic: Denies easy bruising Allergic/Immunologic: Denies persistent infections Past Medical History Past Medical History: Heart Failure, Dialysis, Pneumonia, Renal Disease Additional Past Medical History / Comment(s): pts. fiance/POA states he has had pneumonia for the last 6 weeks, polycystic kidney disease History of Any Multi-Drug Resistant Organisms: None Reported Past Surgical History: Joint Replacement, Orthopedic Surgery Additional Past Surgical History / Comment(s): left knee replacement, plates/screws right foot, back surgery Past Anesthesia/Blood Transfusion Reactions: No Reported Reaction Smoking Status: Current every day smoker - Past Family History Son(s) Family Medical History: Renal Disease Additional Family Medical History / Comment(s): polysystic kidney disease Father Family Medical History: Renal Disease Additional Family Medical History / Comment(s): polyctstic kidney disease Medications and Allergies Home Medications Medication Instructions Recorded Confirmed Type ALPRAZolam [Xanax] 2 mg PO BID 06/07/22 06/07/22 History Albuterol Nebulized [Ventolin 2.5 mg INHALATION RT-QID PRN 06/07/22 06/07/22 History Nebulized] Amoxic-Pot Clav 500-125 mg 1 tab PO BID 06/07/22 06/07/22 History [Augmentin 500-125 mg] Calcium Acetate [Phoslo] 2,004 mg PO TID 06/07/22 06/07/22 History Cholecalciferol [Vitamin D3 (125 125 mcg PO DAILY 06/07/22 06/07/22 History Mcg = 5000 Iu)] Cyclobenzaprine [Flexeril] 10 mg PO TID 06/07/22 06/07/22 History Nora-Kathryn 1 tab PO DAILY 06/07/22 06/07/22 History Tiotropium Br/Olodaterol HCl 2 puff INHALATION RT-DAILY 06/07/22 06/07/22 History [Stiolto Respimat Inhal Max] diphenhydrAMINE [Benadryl] 50 mg PO HS PRN 06/07/22 06/07/22 History methylPREDNISolone [Medrol Dose See Taper PO DIRECTED 06/07/22 06/07/22 Hi story Pack] oxyCODONE-APAP 10-325MG [Percocet 1 tab PO Q4HR PRN 06/07/22 06/07/22 History 10-325 mg] Allergies Allergy/AdvReac Type Severity Reaction Status Date / Time No Known Allergies Allergy Verified 06/07/22 12:05 Physical Examination - Vital Signs Vital Signs: Vital Signs Temp Pulse Pulse Resp BP Pulse Ox 06/13/22 08:49 97.5 F L 79 16 118/59 100 06/13/22 08:43 80 06/13/22 08:39 80 06/13/22 08:38 80 06/13/22 08:31 100 06/13/22 08:30 80 06/13/22 07:30 80 16 06/13/22 03:31 98.1 F 77 16 103/63 96 06/12/22 23:20 97.6 F 84 16 137/77 100 06/12/22 20:00 97.7 F 83 18 130/76 100 06/12/22 12:00 97.7 F 90 16 134/76 99 06/12/22 11:18 79 06/12/22 11:08 81 Intake and Output 06/12/22 06/13/22 06/13/22 22:59 06:59 14:59 Intake Total 480 0 Output Total 0 0 Balance 480 0 Intake: Oral 480 0 Output: Urine 0 0 Other: Weight 81 kg Patient is an elderly Afro-[place]ian male, in no acute distress. Patient is alert awake oriented to time place and person. Patient has slightly slow mentation and prolonged latency time to answer questions. He got somewhat upset when I was asking questions for orientation saying "here we go again". He states it is June 2020 and that he is in a hospital in [facility]. He could not tell name of the hospital. Speech and language functions are normal. Patient can name and repeat very well. No aphasia or dysarthria. Attention, concentration and fund of knowledge is slightly limited. On cranial nerve examination, pupils are equal, round and reacting to light, visual dee are full on confrontation, with no neglect on double simultaneous depression. Extraocular muscles are intact with no nystagmus. Face is symmetric, tongue protrudes to the midline. Palatal elevation and sensation normal, hearing is slightly decreased and shoulder shrug normal, facial sensation normal. On muscle strength testing, there is no pronator drift and the strength is normal in arms and legs distally and proximally. Deep tendon reflexes are symmetric, hypoactive all over and plantars downgoing bilaterally. Sensory to touch is equal with no neglect on double simultaneous stimulation. Cerebellar function showed no ataxia for [id number] testing. He was slow to perform the task. No ataxia for [id number] testing on either side. Tone and bulk of muscles normal. Gait deferred.. On general examination, there is no carotid bruit or murmur, S1-S2 audible. Chest is clear on consultation. Abdomen is soft nontender. No organomegaly, bowel sounds present. Peripheral pulses are present. No edema. Results - Laboratory Findings CBC and BMP: 06/13/22 08:09 06/13/22 08:09 Abnormal Lab Findings: Abnormal Labs 06/07/22 06/07/22 06/07/22 09:05 09:05 09:05 WBC RBC Hgb 9.7 L Hct 36.1 L MCV 74.6 L MCH 19.9 L MCHC 26.7 L RDW 21.1 H Plt Count 107 L Neutrophils # 7.9 H Neutrophils # (Manual) Lymphocytes # Lymphocytes # (Manual) Nucleated RBCs Sodium Chloride 88 L Carbon Dioxide 15 L BUN 31 H Creatinine 9.53 H* Glucose <20 L* POC Glucose (mg/dL) Plasma Lactic Acid [place] Phosphorus Total Bilirubin 4.1 H Conjugated Bilirubin Delta Bilirubin AST 76 H ALT Troponin I 0.099 H* Total Protein 8.9 H HDL Cholesterol 06/07/22 06/07/22 06/07/22 09:52 10:58 12:03 WBC RBC Hgb Hct MCV MCH MCHC RDW Plt Count Neutrophils # Neutrophils # (Manual) Lymphocytes # Lymphocytes # (Manual) Nucleated RBCs Sodium Chloride Carbon Dioxide BUN Creatinine Glucose POC Glucose (mg/dL) 26 L 205 H 60 L Plasma Lactic Acid [place] Phosphorus Total Bilirubin Conjugated Bilirubin Delta Bilirubin AST ALT Troponin I Total Protein HDL Cholesterol 06/07/22 06/07/22 06/07/22 14:46 16:40 16:40 WBC 11.6 H RBC Hgb 9.3 L Hct 34.9 L MCV 74.0 L MCH 19.8 L MCHC 26.8 L RDW 20.9 H Plt Count 102 L Neutrophils # Neutrophils # (Manual) 9.98 H Lymphocytes # Lymphocytes # (Manual) Nucleated RBCs 2 H Sodium 134 L Chloride 88 L Carbon Dioxide 14 L BUN 39 H Creatinine 9.96 H* Glucose 128 H POC Glucose (mg/dL) 208 H Plasma Lactic Acid [place] Phosphorus Total Bilirubin Conjugated Bilirubin Delta Bilirubin AST ALT Troponin I Total Protein HDL Cholesterol 06/07/22 06/07/22 06/07/22 16:40 19:03 19:52 WBC RBC Hgb Hct MCV MCH MCHC RDW Plt Count Neutrophils # Neutrophils # (Manual) Lymphocytes # Lymphocytes # (Manual) Nucleated RBCs Sodium Chloride Carbon Dioxide BUN Creatinine Glucose POC Glucose (mg/dL) 126 H Plasma Lactic Acid [place] 11.3 H* 4.7 H* Phosphorus Total Bilirubin Conjugated Bilirubin Delta Bilirubin AST ALT Troponin I Total Protein HDL Cholesterol 06/07/22 06/08/22 06/08/22 21:22 01:13 03:08 WBC RBC Hgb Hct MCV MCH MCHC RDW Plt Count Neutrophils # Neutrophils # (Manual) Lymphocytes # Lymphocytes # (Manual) Nucleated RBCs Sodium Chloride Carbon Dioxide BUN Creatinine Glucose POC Glucose (mg/dL) 128 H 135 H 289 H Plasma Lactic Acid [place] Phosphorus Total Bilirubin Conjugated Bilirubin Delta Bilirubin AST ALT Troponin I Total Protein HDL Cholesterol 06/08/22 06/08/22 06/08/22 03:13 05:00 06:45 WBC RBC Hgb Hct MCV MCH MCHC RDW Plt Count Neutrophils # Neutrophils # (Manual) Lymphocytes # Lymphocytes # (Manual) Nucleated RBCs Sodium Chloride Carbon Dioxide BUN Creatinine Glucose POC Glucose (mg/dL) 114 H Plasma Lactic Acid [place] 4.1 H* 3.1 H* Phosphorus Total Bilirubin Conjugated Bilirubin Delta Bilirubin AST ALT Troponin I Total Protein HDL Cholesterol 06/08/22 06/08/22 06/08/22 06:45 06:45 09:11 WBC RBC Hgb Hct MCV MCH MCHC RDW Plt Count Neutrophils # Neutrophils # (Manual) Lymphocytes # Lymphocytes # (Manual) Nucleated RBCs Sodium 133 L Chloride 93 L Carbon Dioxide 20 L BUN 37 H Creatinine 7.21 H* Glucose POC Glucose (mg/dL) 114 H Plasma Lactic Acid [place] Phosphorus 4.9 H Total Bilirubin Conjugated Bilirubin Delta Bilirubin AST ALT Troponin I Total Protein HDL Cholesterol 06/08/22 06/08/22 06/08/22 09:38 09:41 14:24 WBC RBC Hgb 9.7 L Hct 35.8 L MCV 72.5 L MCH 19.7 L MCHC 27.2 L RDW 21.0 H Plt Count 90 L Neutrophils # 8.3 H Neutrophils # (Manual) Lymphocytes # 0.9 L Lymphocytes # (Manual) Nucleated RBCs Sodium Chloride Carbon Dioxide BUN Creatinine Glucose POC Glucose (mg/dL) 67 L Plasma Lactic Acid [place] 3.6 H* Phosphorus Total Bilirubin Conjugated Bilirubin Delta Bilirubin AST ALT Troponin I Total Protein HDL Cholesterol 06/08/22 06/08/22 06/08/22 14:44 19:16 20:24 WBC RBC Hgb 8.7 L Hct 31.4 L MCV 71.3 L MCH 19.8 L MCHC 27.8 L RDW 20.9 H Plt Count 80 L Neutrophils # Neutrophils # (Manual) Lymphocytes # 0.7 L Lymphocytes # (Manual) Nucleated RBCs Sodium Chloride Carbon Dioxide BUN Creatinine Glucose POC Glucose (mg/dL) 66 L 126 H Plasma Lactic Acid [place] Phosphorus Total Bilirubin Conjugated Bilirubin Delta Bilirubin AST ALT Troponin I Total Protein HDL Cholesterol 06/08/22 06/09/22 06/09/22 21:17 03:02 13:27 WBC RBC Hgb Hct MCV MCH MCHC RDW Plt Count Neutrophils # Neutrophils # (Manual) Lymphocytes # Lymphocytes # (Manual) Nucleated RBCs Sodium Chloride Carbon Dioxide BUN Creatinine Glucose POC Glucose (mg/dL) 121 H 111 H 69 L Plasma Lactic Acid [place] Phosphorus Total Bilirubin Conjugated Bilirubin Delta Bilirubin AST ALT Troponin I Total Protein HDL Cholesterol 06/09/22 06/09/22 06/09/22 15:07 15:33 23:42 WBC RBC Hgb Hct MCV MCH MCHC RDW Plt Count Neutrophils # Neutrophils # (Manual) Lymphocytes # Lymphocytes # (Manual) Nucleated RBCs Sodium Chloride Carbon Dioxide BUN Creatinine Glucose POC Glucose (mg/dL) 44 L 135 H 113 H Plasma Lactic Acid [place] Phosphorus Total Bilirubin Conjugated Bilirubin Delta Bilirubin AST ALT Troponin I Total Protein HDL Cholesterol 06/10/22 06/10/22 06/10/22 05:10 05:10 10:00 WBC RBC 4.28 L Hgb 8.6 L Hct 31.1 L MCV 72.5 L MCH 20.0 L MCHC 27.6 L RDW 21.0 H Plt Count 77 L Neutrophils # Neutrophils # (Manual) Lymphocytes # Lymphocytes # (Manual) Nucleated RBCs 1 H Sodium 132 L Chloride 94 L Carbon Dioxide 19 L BUN 54 H Creatinine 8.26 H* Glucose 106 H POC Glucose (mg/dL) 127 H Plasma Lactic Acid [place] Phosphorus Total Bilirubin 3.4 H Conjugated Bilirubin Delta Bilirubin AST 294 H ALT 129 H Troponin I Total Protein HDL Cholesterol 06/10/22 06/10/22 06/10/22 11:58 14:28 19:47 WBC RBC Hgb Hct MCV MCH MCHC RDW Plt Count Neutrophils # Neutrophils # (Manual) Lymphocytes # Lymphocytes # (Manual) Nucleated RBCs Sodium Chloride Carbon Dioxide BUN Creatinine Glucose POC Glucose (mg/dL) 114 H 127 H 127 H Plasma Lactic Acid [place] Phosphorus Total Bilirubin Conjugated Bilirubin Delta Bilirubin AST ALT Troponin I Total Protein HDL Cholesterol 06/10/22 06/10/22 06/11/22 21:49 23:59 07:10 WBC RBC Hgb 9.3 L Hct 32.9 L MCV 71.9 L MCH 20.4 L MCHC 28.4 L RDW 21.2 H Plt Count 89 L Neutrophils # Neutrophils # (Manual) Lymphocytes # Lymphocytes # (Manual) 0.62 L Nucleated RBCs 4 H Sodium Chloride Carbon Dioxide BUN Creatinine Glucose POC Glucose (mg/dL) 130 H 116 H Plasma Lactic Acid [place] Phosphorus Total Bilirubin Conjugated Bilirubin Delta Bilirubin AST ALT Troponin I Total Protein HDL Cholesterol 06/11/22 06/11/22 06/11/22 07:10 07:10 13:58 WBC RBC Hgb Hct MCV MCH MCHC RDW Plt Count Neutrophils # Neutrophils # (Manual) Lymphocytes # Lymphocytes # (Manual) Nucleated RBCs Sodium 134 L Chloride 95 L Carbon Dioxide 20 L BUN 65 H Creatinine 9.79 H* Glucose POC Glucose (mg/dL) 125 H Plasma Lactic Acid Gilmer Phosphorus Total Bilirubin 3.7 H Conjugated Bilirubin 1.3 H Delta Bilirubin 1.5 H AST 158 H ALT 106 H Troponin I Total Protein HDL Cholesterol 20.50 L 06/11/22 06/11/22 06/12/22 17:58 20:27 00:24 WBC RBC Hgb Hct MCV MCH MCHC RDW Plt Count Neutrophils # Neutrophils # (Manual) Lymphocytes # Lymphocytes # (Manual) Nucleated RBCs Sodium Chloride Carbon Dioxide BUN Creatinine Glucose POC Glucose (mg/dL) 128 H 125 H 111 H Plasma Lactic Acid Gilmer Phosphorus Total Bilirubin Conjugated Bilirubin Delta Bilirubin AST ALT Troponin I Total Protein HDL Cholesterol 06/12/22 06/12/22 06/13/22 11:48 18:05 08:09 WBC RBC Hgb 9.4 L Hct 34.8 L MCV 72.2 L MCH 19.5 L MCHC 27.0 L RDW 21.5 H Plt Count 114 L Neutrophils # Neutrophils # (Manual) Lymphocytes # Lymphocytes # (Manual) Nucleated RBCs Sodium Chloride Carbon Dioxide BUN Creatinine Glucose POC Glucose (mg/dL) 121 H 141 H Plasma Lactic Acid Gilmer Phosphorus Total Bilirubin Conjugated Bilirubin Delta Bilirubin AST ALT Troponin I Total Protein HDL Cholesterol Assessment and Plan Assessment: * Altered mental status, likely due to metabolic encephalopathy. Reasons multifactorial as mentioned below. * Patient has recent history of episodes of hypoglycemia 2, which may be contributing to the encephalopathy. Exact cause of hypoglycemia uncertain. * ESRD from polycystic kidney disease, on hemodialysis. Patient missed hemodialysis before arrival. * Elevated cardiac enzymes, cardiology on board. * Elevated liver enzymes, improving. * CHF * Hypertension * Tobacco use Plan: * Avoid further episodes of hypoglycemia. * Patient not diabetic, not on any oral hypoglycemic agent at home. Uncertain as to the cause of hypoglycemia. Suggest endocrinology consultation. * Check hemoglobin A1c, B12, folate, TSH. * Patient's examination is nonfocal. Continue aspirin. No other workup indicated. * Continue hemodialysis as scheduled. * Neurologically clear. Thank you for the consult.
[2022-06-13 18:08] LABS: Glucose,Whole Blood 137 mg/dL (70-110)
[2022-06-13 20:19] LABS: Glucose,Whole Blood 121 mg/dL (70-110)
[2022-06-13] MEDS: FAMOTIDINE 20 MG TAB PO SCH (20:34)
[2022-06-14 00:47] LABS: Glucose,Whole Blood 87 mg/dL (70-110)
--- NOTE | 2022-06-14 04:59 | PN ---
PROGRESS NOTE SUBJECTIVE: The patient is seen for followup for end-stage renal disease. He is currently lying in bed, comfortable, not in any acute distress. PHYSICAL EXAMINATION: VITAL SIGNS: Blood pressure is 134/76, heart rate 79 per minute, the patient is afebrile. HEART: S1, S2. LUNGS: Bilateral breath sounds are heard. ABDOMEN: Soft, nontender. LOWER EXTREMITIES: Shows no significant edema. TOUCHER UP: Shows the patient's mentation slowly improving. He is moving all 4 extremities. LABORATORY DATA: Labs show on 06/11; sodium 134, potassium 4.0, creatinine 9.79, hemoglobin 9.3 g/dL. ASSESSMENT: 1. End-stage renal disease, on hemodialysis, on a Saturday, Saturday, Saturday schedule. 2. Altered mentation, slowly improving. Neurology has been consulted. 3. Chronic kidney disease/mineral bone disorder. 4. Hypoglycemia on initial admission, which most likely cause the encephalopathy, currently improving. 5. Underlying polycystic kidney disease. PLAN: Hemodialysis in a.m., and continue with Aranesp and phosphate binders. MMODL / IJN: [id number] /
--- NOTE | 2022-06-14 05:26 | PN ---
PROGRESS NOTE SUBJECTIVE: The patient is seen for followup for end-stage renal disease. His mentation is currently almost is close to baseline. The patient is comfortable, awake, not in any acute distress. OBJECTIVE: VITAL SIGNS: Blood pressure 106/65, heart rate 78 per minute, he is afebrile. HEART: S1, S2. LUNGS: Bilateral breath sounds are heard. ABDOMEN: Soft, nontender. LOWER EXTREMITIES: Shows no significant edema. OVERHEAD DOOR TECHNICIAN: Shows the patient is moving all 4 extremities. He does not have any neuro deficits. He is answering questions appropriately. LABORATORY DATA: Labs show hemoglobin 9.4. Sodium 135, potassium 4.0, glucose at 102 to 121 mg/dL. ASSESSMENT: 1. End stage renal disease, on hemodialysis on a Saturday, Saturday, Saturday schedule. 2. Mental status changes and encephalopathy, most likely secondary to hypoglycemia. 3. Anemia of chronic disease. 4. Chronic kidney disease/mineral bone disorder. 5. Hypoglycemia in a patient with no history of diabetes. I will order a drug screen, although it might be a bit too far out since admission. If the hypoglycemia persists, the patient should be evaluated by Endocrinology, this can be done as outpatient . The patient is currently maintained on glucose tabs 4 g q.i.d. PLAN: Hemodialysis today. MMODL / IJN: [id number] /
[2022-06-14 06:00] LABS: Glucose,Whole Blood 96 mg/dL (70-110)
[2022-06-14] MEDS: CALCIUM ACETATE 667 MG TAB PO SCH ×3 (06:52→16:55)
[2022-06-14] MEDS: FORMOTEROL FUMARATE 20 MCG/2 ML NEBU INHALATION SCH ×2 (07:41→20:35)
[2022-06-14] MEDS: IPRATROPIUM 0.5 MG/2.5 ML NEBU INHALATION SCH ×4 (07:41→20:35)
--- NOTE | 2022-06-14 08:24 | P.DS ---
Providers Date of admission: 06/07/22 12:36 Attending physician: Juan Manuel Jerome Consults: 06/07/22 13:03 Consult Physician Urgent Consulting Provider: Magan Umana Consult Reason/Comments: Dialysis Do you want consulting provider notified?: Yes 06/10/22 20:18 Consult to Palliative Care Routine Consulting Provider: Minnie Cook Consult Reason/Comments: ESRD Do you want consulting provider notified?: Yes 06/11/22 13:09 Consult Physician Routine Consulting Provider: Estrada Reyes Consult Reason/Comments: elevated troponin on admission Do you want consulting provider notified?: Yes 06/13/22 08:21 Consult Physician Routine Consulting Provider: Ortega Nichols Consult Reason/Comments: altered mental status Do you want consulting provider notified?: Yes Primary care physician: Juan Manuel Jerome - Discharge Diagnosis(es) (1) ESRD (end stage renal disease) Current Visit: Yes Status: Acute (2) Altered mental status Current Visit: Yes Status: Acute (3) Hypoglycemia Current Visit: Yes Status: Acute (4) Missed dialysis Current Visit: Yes Status: Acute Hospital Course: Patient is 71-year-old black male with end-stage renal disease on dialysis who had significant fluid overload related to missing dialysis. Resultant hypoglycemia and altered mental status was encountered during hospitalization. Neurology cleared the patient. His sugar started becoming more normal and his mental status improved to back to his baseline. I suspect he is weak and we had suggested temporary ECF for rehab, but the family wishes to take the patient home at this time. Prognosis is guarded but he has decent family support. We will follow-up in about 5-7 Plan - Discharge Summary Discharge Rx Participant: No New Discharge Prescriptions: New Metoprolol Succinate (ER) [Toprol XL] 25 mg PO DAILY #30 tab Darbepoetin Bradford [Aranesp] 40 mcg SQ Q7D #4 each Aspirin 81 mg PO DAILY #0 tab Continue Tiotropium Br/Olodaterol HCl [Stiolto Respimat Inhal [place]] 2 puff INHALATION RT-DAILY Nora-Kathryn 1 tab PO DAILY oxyCODONE-APAP 10-325MG [Percocet 10-325 mg] 1 tab PO Q4HR PRN PRN Reason: Pain ALPRAZolam [Xanax] 2 mg PO BID diphenhydrAMINE [Benadryl] 50 mg PO HS PRN PRN Reason: Insomnia Cholecalciferol [Vitamin D3 (125 Mcg = 5000 Iu)] 125 mcg PO DAILY Cyclobenzaprine [Flexeril] 10 mg PO TID Calcium Acetate [PhosLo] 2,004 mg PO TID Amoxic-Pot Clav 500-125 mg [Augmentin 500-125 mg] 1 tab PO BID Albuterol Nebulized [Ventolin Nebulized] 2.5 mg INHALATION RT-QID PRN PRN Reason: Shortness Of Breath Or Wheezing Discontinued methylPREDNISolone [Medrol Dose Pack] See Taper PO DIRECTED Discharge Medication List ALPRAZolam [Xanax] 2 mg PO BID 06/07/22 [History] Albuterol Nebulized [Ventolin Nebulized] 2.5 mg INHALATION RT-QID PRN 06/07/22 [History] Amoxic-Pot Clav 500-125 mg [Augmentin 500-125 mg] 1 tab PO BID 06/07/22 [History] Calcium Acetate [PhosLo] 2,004 mg PO TID 06/07/22 [History] Cholecalciferol [Vitamin D3 (125 Mcg = 5000 Iu)] 125 mcg PO DAILY 06/07/22 [History] Cyclobenzaprine [Flexeril] 10 mg PO TID 06/07/22 [History] Nora-Kathryn 1 tab PO DAILY 06/07/22 [History] Tiotropium Br/Olodaterol HCl [Stiolto Respimat Inhal [place]] 2 puff INHALATION RT-DAILY 06/07/22 [History] diphenhydrAMINE [Benadryl] 50 mg PO HS PRN 06/07/22 [History] oxyCODONE-APAP 10-325MG [Percocet 10-325 mg] 1 tab PO Q4HR PRN 06/07/22 [Hist ory] Aspirin 81 mg PO DAILY #0 tab 06/14/22 [Rx] Darbepoetin Bradford [Aranesp] 40 mcg SQ Q7D #4 each 06/14/22 [Rx] Metoprolol Succinate (ER) [Toprol XL] 25 mg PO DAILY #30 tab 06/14/22 [Rx] Follow up Appointment(s)/Referral(s): Juan Manuel Jerome MD [Primary Care Provider] - 1 Week Discharge Disposition: HOME SELF-CARE
[2022-06-14] MEDS: DEXTROSE 4 GM CHEWABLE PO SCH ×4 (08:59→19:57)
--- NOTE | 2022-06-14 10:18 | P.PN ---
Subjective Progress Note Date: 06/14/22 Principal diagnosis: hypoglycemia, altered mental status This is a 71-year-old male with past medical history significant for polycystic kidney disease, end-stage renal disease on hemodialysis, hypertension, mild coronary artery disease, and cardiomyopathy. The patient is on dialysis 3 days a week, he missed dialysis on 06/06/22. Significant other found the patient unr esponsive on 06/07/22 and called EMS. EMS stated the patient's blood sugar was extremely low in the 40s but they were unable to get a line so they gave him oral glucose but had no effect so they brought to the emergency department. There is no history of diabetes per the significant other. The patient continued to have episodes of significant hypoglycemia due to poor oral intake. He had been getting IV dextrose for markedly low blood sugars. The patient is more awake now and eating better, glucose has stabilized. Despite his stable blood sugars, he still remains confused. Also, upon admission his troponin was elevated 0.9, no previous cardiac history in this facility. Denied any chest pain. Cardiology consulted and following patient. 2D echo pending to assess cardiac structure and function. 06/12 Patient resting in bed and appears comfortable. He is oriented x [address]. He is not oriented to situation and does not know why he is on the hospital. Spoke with his significant other, Jasmine, via telephone. She is the patient's POA. She stated she has not been up to visit the patient for the last two days because the patient gets agitated and thinks he is going home. Education regarding his chronic diseases and current status provided. She is very concerned that despite his blood sugars stabilizing, he is still more confused than his baseline. She is worried that with his weakness and altered mental status, she may not be able to care for him at home. Per OT, the patient presents with more cognitive limitations than physical limitations. Needs frequent re-direction as attention to task is variable with very limited short term memory and similar problem solving limitations. Unable to follow two step directions. Needed minimal assist with all ADL and repeated instruction and redirection. Attending physician notified of concerns. A consult for Neurology was placed. Both the patient and Jasmine stated his goals of care would be to optimize his functionality and continue dialysis. Code status also discussed in detail. Jasmine states the patient is to remain a full code per the patient's wishes. The patient may benefit from a [facility] vs going home. frozen foods manager notified that the Jasmine is considering this option. Information was provided regarding palliative care philosophies and services. Jasmine stated she would like to continue with palliative care once the patient is discharged. 06/13 The patient was asleep in his bed, but awakens easily. He is oriented to himself and place. He stated in is October. He appears to be oriented until you have a conversation with him. When asked if Dr. Jerome has been in [place] today, he started to tell me that he has been in, but then proceeded to tell me that Dr. Jerome is confident that the hospital is ok and the only thing keeping him here is attention and something is going on at school. He rambles on and his thoughts are nonsensical. Awaiting neurology's consult. The patient is receiving hemodialysis today. Attempted to reach Jasmine via telephone, left voicemail. The plan remains to send the patient to [facility] and OP palliative care. frozen foods manager working on placement. Objective - Vital Signs Vital signs: Vital Signs Temp 97.9 F 06/14/22 08:00 Pulse 76 06/14/22 08:00 Resp 17 06/14/22 08:00 BP 127/73 06/14/22 08:00 Pulse Ox 99 06/14/22 08:00 FiO2 Intake & Output 06/13/22 06/14/22 06/14/22 18:59 06:59 18:59 Intake Total 840 240 Output Total 1800 0 Balance -960 240 Weight 82.5 kg Intake: Oral 540 240 Hemodialysis 300 Output: Urine 0 Hemodialysis 1800 Other: # Voids 0 - Exam General: Well developed, well nourished. No acute distress. Chronically ill appearing HEENT: Head is atraumatic, normocephalic. Sclerae are clear. Pupils equal, round and reactive to light bilaterally. Mucus membranes moist. CV: Heart regular in rate and rhythm positive S1 and S2. No clicks, rubs or murmurs. Peripheral pulses equal. 2/4. Lungs: Clear to auscultation bilaterally. No wheezes rales or rhonchi. Respirations even and nonlabored. On RA Abdomen/GI: Soft. Bowel sounds present in all 4 quadrants.No guarding, rigidity, or abdominal tenderness. Musculoskeletal/ Extremities: CONNELL, no joint deformity or swelling. No gross atrophy. + generalized weakness Vascular: Radial pulses equal. 2/4. No peripheral edema. left upper am AV fistula Skin: Warm and dry, No rash or lesions. Neurologic: Awake, alert and oriented times 2. CN II-XII grossly intact. No focal deficits. Psychiatric: Appropriate mood and affect. - Labs CBC & Chem 7: 06/13/22 08:09 06/13/22 08:09 Labs: Abnormal Lab Results - Last 24 Hours (Table) 06/13/22 06/13/22 06/13/22 Range/Units 08:09 08:09 11:40 Sodium 135 L (137-145) mmol/L Chloride 94 L (98-107) mmol/L BUN 54 H (9-20) mg/dL Creatinine 9.28 H* (0.66-1.25) mg/dL Glucose 102 H (74-99) mg/dL POC Glucose (mg/dL) 121 H (70-110) mg/dL Total Bilirubin 3.1 H (0.2-1.3) mg/dL AST 73 H (17-59) U/L ALT 73 H (4-49) U/L Total Protein 8.3 H (6.3-8.2) g/dL Vitamin B12 1607.0 H (200.0-944.0) pg/mL 06/13/22 06/13/22 Range/Units 18:06 20:17 Sodium (137-145) mmol/L Chloride (98-107) mmol/L BUN (9-20) mg/dL Creatinine (0.66-1.25) mg/dL Glucose (74-99) mg/dL POC Glucose (mg/dL) 137 H 121 H (70-110) mg/dL Total Bilirubin (0.2-1.3) mg/dL AST (17-59) U/L ALT (4-49) U/L Total Protein (6.3-8.2) g/dL Vitamin B12 (200.0-944.0) pg/mL Microbiology - Last 24 Hours (Table) 06/07/22 16:50 Blood Culture - Final Blood No Growth after 144 hours 06/07/22 16:40 Blood Culture - Final Blood No Growth after 144 hours Assessment and Plan Assessment: Symptoms * Pain - 0/10, continue oxycodone and flexeril for chronic pain * Fatigue - + generalized weakness and fatigue, continue Arenesp, and PT/OT * SOB - No, continue Atrovent, Albuterol, and Perforomist * Insomnia - No * N/V - No * Anxiety - No * Depression - No * Confusion - Yes, monitor blood sugars closely * Agitation - Occasional agitation, continue Ativan prn * Hallucinations - No * Appetite/weight loss - + decreased appetite, + malnutrition 2/2 poor oral intake. Continue Renal diet, encourage oral intake and continue glucose tabs prn to maintain blood sugar. Excel Expert following. * Dysphagia - No * Constipation - LBM 06/11 * Incontinence - Anuric, continent with BMs * Itch - No Plan: Summary/Goals - Patient sleeping in bed and apears comfortable. He is more oriented today and able to follow our conversation well. Per neurology altered mental status likely due to metabolic encephalopathy. The patient denies any pain. He states he was able to eat a good breakfast and is waiting to be discharged today. PT recommends [facility] vs home with homecare. Recommendations - [facility] vs home with healthcare and OP palliative care Advanced Directives - No Code Status - Full code Thank you for this consult Minnie Cook [facility] Palliative Care [facility] [id number] Email: [email or web address] Time with Patient: Less than 30
[2022-06-14] MEDS: HEPARIN SODIUM,PORCINE/PF 5,000 UNIT/0.5 ML SYRINGE SQ SCH ×2 (10:24→19:57)
[2022-06-14] MEDS: CYCLOBENZAPRINE 10 MG TAB PO SCH ×3 (10:24→22:40)
[2022-06-14] MEDS: FOLIC ACID-VIT B COMPLEX-VIT C 1 CAP PO SCH (10:24)
[2022-06-14] MEDS: ASPIRIN 81 MG PO SCH (10:25)
[2022-06-14] MEDS: METOPROLOL SUCCINATE (ER) 25 MG TAB.ER.24H PO SCH (10:25)
[2022-06-14] MEDS: CHOLECALCIFEROL 125 MCG (5000 IU) TABLET PO SCH (10:25)
[2022-06-14] MEDS: oxyCODONE-APAP 10-325MG 1 EACH TAB PO PRN ×2 (10:27→16:55)
--- NOTE | 2022-06-14 10:38 | P.PN ---
Subjective Patient is seen for follow-up for end-stage renal disease. He is maintained on a Saturday schedule. Patient was admitted to the hospital with hypoglycemia. Patient's IV came out and he has not been able to have another IV placed. Blood sugars have improved and currently 80- 100. Patient remains on glucose tabs 4 g 4 times a day No evidence of underlying infection noted Patient has been confused but mentation seems to have improved since admission. Objective - Vital Signs Vital signs: Vital Signs Temp 97.9 F 06/14/22 08:00 Pulse 76 06/14/22 08:00 Resp 17 06/14/22 08:00 BP 127/73 06/14/22 08:00 Pulse Ox 99 06/14/22 08:00 FiO2 Intake & Output 06/13/22 06/14/22 06/14/22 18:59 06:59 18:59 Intake Total 840 240 Output Total 1800 0 Balance -960 240 Weight 82.5 kg Intake: Oral 540 240 Hemodialysis 300 Output: Urine 0 Hemodialysis 1800 Other: # Voids 0 - Exam Awake, comfortable, not in any acute distress, somewhat confused Exertion lower extremities shows no evidence of edema COMM[employer]CIAL TITLE EXAMINER exam grossly intact - Labs CBC & Chem 7: 06/13/22 08:09 06/13/22 08:09 Labs: Abnormal Lab Results - Last 24 Hours (Table) 06/13/22 06/13/22 06/13/22 Range/Units 08:09 11:40 18:06 POC Glucose (mg/dL) 121 H 137 H (70-110) mg/dL Vitamin B12 1607.0 H (200.0-944.0) pg/mL 06/13/22 Range/Units 20:17 POC Glucose (mg/dL) 121 H (70-110) mg/dL Vitamin B12 (200.0-944.0) pg/mL Microbiology - Last 24 Hours (Table) 06/07/22 16:50 Blood Culture - Final Blood No Growth after 144 hours 06/07/22 16:40 Blood Culture - Final Blood No Growth after 144 hours Assessment and Plan Assessment: 1. End-stage renal disease on hemodialysis on a Saturday vent is a Saturday schedule via left arm AV fistula 2. Hypoglycemia currently improved but still requiring glucose tabs 4 g 4 times a day to maintain blood sugars 80-100. No underlying history of diabetes 3. CK D mineral bone disorder 4. Anemia of chronic disease maintained on Aranesp with ALLERGY to IV iron 5. Altered mentation most likely associated with hypoglycemia currently improving Plan: Hemodialysis in a.m.
--- NOTE | 2022-06-14 10:38 | P.PN ---
Subjective HISTORY OF PRESENT ILLNESS: This is a 71-year-old male with a past medical history significant for polycystic kidney disease, end-stage renal disease on hemodialysis, hypertension, mild coronary artery disease, and cardiomyopathy. Patient used to see Dr. Solano but he states he has switched cardiologists but is unable to recall the name of who he currently sees. We have been asked to see the patient in consultation for abnormal troponins. Patient examined at the bedside. Patient is admitted to the hospital secondary to altered mental status and hypoglycemia. Patient had 1 elevated troponin on admission of 0.099. Patient denies any chest pain or pressure. He denies shortness of breath. Patient's vital signs are stable. Per nursing, he received hemodialysis yesterday. * EKG reveals sinus mechanism with PVCs * Chest xray cardiomegaly without acute pulmonary process * Laboratory data: WBC 6.9. Hemoglobin 9.3. Platelet count 89. Sodium 134. Potassium 4.0. BUN 65. Creatinine 9.79. * Current home cardiac medications include none * Most recent echocardiogram obtained in April 2021 revealed ejection fraction 3035%, moderate aortic regurgitation, normal RVSP * Patient underwent Lexiscan stress test in June 2016 which was negative for ischemia. Probably abnormal perfusion study with mild fixed defect involving the inferior septal wall and inferior basal segment that could represent previous myocardial infarction. * Cardiac catheterization history: July 2016 revealing mild coronary artery disease 06/13/2022 Patient examined this morning at the bedside. Patient denies chest pain or pressure. Denies SOB. Patient refusing telemetry monitoring. 2D echo is pending. Vital signs are stable. 06/14/2022 Patient examined this morning at the bedside. Patient denies chest pain or pre ssure. Denies SOB. Family at the bedside. Patient remains somewhat confused this morning. Vital sings are stable. Echocardiogram completed revealing ejection fraction 30-35%, severe right ventricular dilatation, moderate pulmonary hypertension, [id number] mitral regurgitation. PHYSICAL EXAM: VITAL SIGNS: Reviewed. GENERAL: Well-developed in no acute distress. HEENT: Head is normocephalic. Pupils are equal, round. Sclerae anicteric. Mucous membranes of the mouth are moist. Neck supple. No JVD or thyromegaly LUNGS: Respirations even and unlabored. Lungs essentially clear to auscultation bilaterally. HEART: Regular rate and rhythm. S1 and S2 heard. ABDOMEN: Soft. Nondistended. Nontender. EXTREMITIES: Normal range of motion. No clubbing or cyanosis. Peripheral pulses intact. No lower extremity edema NEUROLOGIC: Awake and alert. Oriented x 2. ASSESSMENT: Altered mental status Hypoglycemia Polycystic kidney disease End-stage renal disease on hemodialysis Abnormal troponin, likely secondary to chronic kidney disease, no evidence of ACS Hypertension Mild coronary artery disease, per cardiac catheterization in 2016 History of nonischemic cardiomyopathy, EF 30-35 Elevated LFTs PLAN: Continue current cardiac medications Patient would benefit from FLORENTINO/ARB secondary to hx of cardiomyopathy. Will re- evaluate on an outpatient basis pending blood pressures. Patient is stable from a cardiac standpoint Further recommendations pending patient course Nurse practitioner note has been reviewed by physician. Signing provider agrees with the documented findings, assessment, and plan of care. Objective - Vital Signs Vital signs: Vital Signs Temp 97.9 F 06/14/22 08:00 Pulse 76 06/14/22 08:00 Resp 17 06/14/22 08:00 BP 127/73 06/14/22 08:00 Pulse Ox 99 06/14/22 08:00 FiO2 Intake & Output 06/13/22 06/14/22 06/14/22 18:59 06:59 18:59 Intake Total 840 240 Output Total 1800 0 Balance -960 240 Weight 82.5 kg Intake: Oral 540 240 Hemodialysis 300 Output: Urine 0 Hemodialysis 1800 Other: # Voids 0 - Labs CBC & Chem 7: 06/13/22 08:09 06/13/22 08:09 Labs: Abnormal Lab Results - Last 24 Hours (Table) 06/13/22 06/13/22 06/13/22 Range/Units 08:09 11:40 18:06 POC Glucose (mg/dL) 121 H 137 H (70-110) mg/dL Vitamin B12 1607.0 H (200.0-944.0) pg/mL 06/13/22 Range/Units 20:17 POC Glucose (mg/dL) 121 H (70-110) mg/dL Vitamin B12 (200.0-944.0) pg/mL Microbiology - Last 24 Hours (Table) 06/07/22 16:50 Blood Culture - Final Blood No Growth after 144 hours 06/07/22 16:40 Blood Culture - Final Blood No Growth after 144 hours
[2022-06-14 12:10] LABS: Glucose,Whole Blood 87 mg/dL (70-110)
[2022-06-14 14:17] VITALS: BMI 27.6
[2022-06-14 17:17] LABS: Glucose,Whole Blood 120 mg/dL (70-110)
[2022-06-14] MEDS: FAMOTIDINE 20 MG TAB PO SCH (19:57)
[2022-06-14] MEDS: LORazepam 0.5 MG TAB PO PRN (23:23)
[2022-06-14 23:53] LABS: Glucose,Whole Blood 119 mg/dL (70-110)
[2022-06-15 06:07] LABS: Glucose,Whole Blood 112 mg/dL (70-110)
[2022-06-15] MEDS: CALCIUM ACETATE 667 MG TAB PO SCH ×4 (06:35→17:11)
[2022-06-15] MEDS: FORMOTEROL FUMARATE 20 MCG/2 ML NEBU INHALATION SCH (07:30)
[2022-06-15] MEDS: IPRATROPIUM 0.5 MG/2.5 ML NEBU INHALATION SCH ×3 (07:30→15:13)
[2022-06-15] MEDS: FOLIC ACID-VIT B COMPLEX-VIT C 1 CAP PO SCH (09:38)
[2022-06-15] MEDS: DEXTROSE 4 GM CHEWABLE PO SCH ×3 (09:38→17:10)
[2022-06-15] MEDS: ASPIRIN 81 MG PO SCH (09:38)
[2022-06-15] MEDS: HEPARIN SODIUM,PORCINE/PF 5,000 UNIT/0.5 ML SYRINGE SQ SCH (09:38)
[2022-06-15] MEDS: CHOLECALCIFEROL 125 MCG (5000 IU) TABLET PO SCH (09:38)
[2022-06-15] MEDS: CYCLOBENZAPRINE 10 MG TAB PO SCH ×2 (09:38→17:11)
[2022-06-15] MEDS: METOPROLOL SUCCINATE (ER) 25 MG TAB.ER.24H PO SCH (09:38)
[2022-06-15] MEDS: DARBEPOETIN ALFA 40 MCG/0.4 ML SYRINGE SQ SCH (09:47)
[2022-06-15] MEDS: oxyCODONE-APAP 10-325MG 1 EACH TAB PO PRN (10:09)
--- NOTE | 2022-06-15 10:09 | P.PN ---
Subjective Progress Note Date: 06/15/22 Principal diagnosis: hypoglycemia, altered mental status This is a 71-year-old male with past medical history significant for polycystic kidney disease, end-stage renal disease on hemodialysis, hypertension, mild coronary artery disease, and cardiomyopathy. The patient is on dialysis 3 days a week, he missed dialysis on 06/06/22. Significant other found the patient unr esponsive on 06/07/22 and called EMS. EMS stated the patient's blood sugar was extremely low in the 40s but they were unable to get a line so they gave him oral glucose but had no effect so they brought to the emergency department. There is no history of diabetes per the significant other. The patient continued to have episodes of significant hypoglycemia due to poor oral intake. He had been getting IV dextrose for markedly low blood sugars. The patient is more awake now and eating better, glucose has stabilized. Despite his stable blood sugars, he still remains confused. Also, upon admission his troponin was elevated 0.9, no previous cardiac history in this facility. Denied any chest pain. Cardiology consulted and following patient. 2D echo pending to assess cardiac structure and function. 06/12 Patient resting in bed and appears comfortable. He is oriented x [address]. He is not oriented to situation and does not know why he is on the hospital. Spoke with his significant other, Jasmnie, via telephone. She is the patient's POA. She stated she has not been up to visit the patient for the last two days because the patient gets agitated and thinks he is going home. Education regarding his chronic diseases and current status provided. She is very concerned that despite his blood sugars stabilizing, he is still more confused than his baseline. She is worried that with his weakness and altered mental status, she may not be able to care for him at home. Per OT, the patient presents with more cognitive limitations than physical limitations. Needs frequent re-direction as attention to task is variable with very limited short term memory and similar problem solving limitations. Unable to follow two step directions. Needed minimal assist with all ADL and repeated instruction and redirection. Attending physician notified of concerns. A consult for Neurology was placed. Both the patient and Jasmine stated his goals of care would be to optimize his functionality and continue dialysis. Code status also discussed in detail. Jasmine states the patient is to remain a full code per the patient's wishes. The patient may benefit from a [facility] vs going home. explosive ordnance disposal manager notified that the Jasmine is considering this option. Information was provided regarding palliative care philosophies and services. Jasmine stated she would like to continue with palliative care once the patient is discharged. 06/13 The patient was asleep in his bed, but awakens easily. He is oriented to himself and place. He stated in is October. He appears to be oriented until you have a conversation with him. When asked if Dr. Jerome has been in [place] today, he started to tell me that he has been in, but then proceeded to tell me that Dr. Jerome is confident that the hospital is ok and the only thing keeping him here is attention and something is going on at school. He rambles on and his thoughts are nonsensical. Awaiting neurology's consult. The patient is receiving hemodialysis today. Attempted to reach Jasmine via telephone, left voicemail. The plan remains to send the patient to [facility] and OP palliative care. explosive ordnance disposal manager working on placement. 06/14 Patient sleeping in bed and appears comfortable. He is more oriented today and able to follow our conversation well. Per neurology altered mental status likely due to metabolic encephalopathy. The patient denies any pain. He states he was able to eat a good breakfast and is waiting to be discharged today. PT recommends [facility] vs. home with home care. Objective - Vital Signs Vital signs: Vital Signs Temp 98.1 F 06/15/22 08:22 Pulse 78 06/15/22 08:22 Resp 18 06/15/22 08:22 BP 144/74 06/15/22 08:22 Pulse Ox 100 06/15/22 08:22 FiO2 Intake & Output 06/14/22 06/15/22 06/15/22 18:59 06:59 18:59 Intake Total 598 480 Output Total 0 Balance 598 480 Weight 82.5 kg Intake: Oral 598 480 Output: Urine 0 - Exam General: Well developed, well nourished. No acute distress. Chronically ill appearing HEENT: Head is atraumatic, normocephalic. Sclerae are clear. Pupils equal, round and reactive to light bilaterally. Mucus membranes moist. CV: Heart regular in rate and rhythm positive S1 and S2. No clicks, rubs or murmurs. Peripheral pulses equal. 2/4. Lungs: Clear to auscultation bilaterally. No wheezes rales or rhonchi. Respirations even and nonlabored. On RA Abdomen/GI: Soft. Bowel sounds present in all 4 quadrants.No guarding, rigidity, or abdominal tenderness. Musculoskeletal/ Extremities: CONNELL, no joint deformity or swelling. No gross atrophy. + generalized weakness Vascular: Radial pulses equal. 2/4. No peripheral edema. left upper am AV fistula Skin: Warm and dry, No rash or lesions. Neurologic: Awake, alert and oriented times 2. CN II-XII grossly intact. No focal deficits. Psychiatric: Appropriate mood and affect. - Labs CBC & Chem 7: 06/13/22 08:09 06/13/22 08:09 Labs: Abnormal Lab Results - Last 24 Hours (Table) 06/14/22 06/14/22 06/15/22 Range/Units 17:16 23:51 06:06 POC Glucose (mg/dL) 120 H 119 H 112 H (70-110) mg/dL Assessment and Plan Assessment: Symptoms * Pain - 4/10, right foot pain. Continue oxycodone and flexeril for chronic pain * Fatigue - + generalized weakness and fatigue, continue Arenesp, and PT/OT * SOB - No, continue Atrovent, Albuterol, and Perforomist * Insomnia - No * N/V - No * Anxiety - No * Depression - No * Confusion - Yes, monitor blood sugars closely * Agitation - Occasional agitation, continue Ativan prn * Hallucinations - No * Appetite/weight loss - + decreased appetite, + malnutrition 2/2 poor oral intake. Continue Renal diet, encourage oral intake and continue glucose tabs prn to maintain blood sugar. Knapsack Sprayer following. * Dysphagia - No * Constipation - LBM 06/11 * Incontinence - Anuric, continent with BMs * Itch - No Plan: Summary/Goals: The patient was sleeping in bed, but awakens easily. He is oriented to person and place. His mentation is improving. Patient states he ate breakfast, denies and nausea or vomiting. BS stable, still receiving glucose tabs four times a day. He sis scheduled for hemodialysis today. Discharge to [facility] pending insurance authorization. Recommendations - [facility] and OP palliative care Advanced Directives - No Code Status - Full code Thank you for this consult Minnie Cook [facility] Palliative Care [facility] [id number] Email: [email or web address] Time with Patient: Less than 30
--- NOTE | 2022-06-15 10:49 | P.PN ---
Subjective Patient is seen for follow-up for end-stage renal disease. He is maintained on a Saturday schedule. Patient was admitted to the hospital with hypoglycemia. Patient's IV came out and he has not been able to have another IV placed. Blood sugars have improved and currently 80- 100. Patient remains on glucose tabs 4 g 4 times a day No evidence of underlying infection noted Patient has been confused but mentation seems to have improved since admission. Objective - Vital Signs Vital signs: Vital Signs Temp 98.1 F 06/15/22 08:22 Pulse 78 06/15/22 08:22 Resp 18 06/15/22 08:22 BP 144/74 06/15/22 08:22 Pulse Ox 100 06/15/22 08:22 FiO2 Intake & Output 06/14/22 06/15/22 06/15/22 18:59 06:59 18:59 Intake Total 598 480 200 Output Total 0 Balance 598 480 200 Weight 82.5 kg Intake: Oral 598 480 200 Output: Urine 0 Other: # Voids 0 - Exam Awake, comfortable, not in any acute distress, somewhat confused Exertion lower extremities shows no evidence of edema LEAD COATER exam grossly intact - Labs CBC & Chem 7: 06/13/22 08:09 06/13/22 08:09 Labs: Abnormal Lab Results - Last 24 Hours (Table) 06/14/22 06/14/22 06/15/22 Range/Units 17:16 23:51 06:06 POC Glucose (mg/dL) 120 H 119 H 112 H (70-110) mg/dL Assessment and Plan Assessment: 1. End-stage renal disease on hemodialysis on a Saturday vent is a Saturday schedule via left arm AV fistula 2. Hypoglycemia currently improved but still requiring glucose tabs 4 g 4 times a day to maintain blood sugars 80-100. No underlying history of diabetes 3. CK D mineral bone disorder 4. Anemia of chronic disease maintained on Aranesp with ALLERGY to IV iron 5. Altered mentation most likely associated with hypoglycemia currently improving Plan: Hemodialysis today
--- NOTE | 2022-06-15 11:36 | P.PN ---
Subjective Progress Note Date: 06/15/22 HISTORY OF PRESENT ILLNESS: This is a 71-year-old male with a past medical history significant for polycystic kidney disease, end-stage renal disease on hemodialysis, hypertension, mild coronary artery disease, and cardiomyopathy. Patient used to see Dr. Solano but he states he has switched cardiologists but is unable to recall the name of who he currently sees. We have been asked to see the patient in consultation for abnormal troponins. Patient examined at the bedside. Patient is admitted to the hospital secondary to altered mental status and hypoglycemia. Patient had 1 elevated troponin on admission of 0.099. Patient denies any chest pain or pressure. He denies shortness of breath. Patient's vital signs are stable. Per nursing, he received hemodialysis yesterday. * EKG reveals sinus mechanism with PVCs * Chest xray cardiomegaly without acute pulmonary process * Laboratory data: WBC 6.9. Hemoglobin 9.3. Platelet count 89. Sodium 134. Potassium 4.0. BUN 65. Creatinine 9.79. * Current home cardiac medications include none * Most recent echocardiogram obtained in April 2021 revealed ejection fraction 3035%, moderate aortic regurgitation, normal RVSP * Patient underwent Lexiscan stress test in June 2016 which was negative for ischemia. Probably abnormal perfusion study with mild fixed defect involving the inferior septal wall and inferior basal segment that could represent previous myocardial infarction. * Cardiac catheterization history: July 2016 revealing mild coronary artery disease 06/13/2022 Patient examined this morning at the bedside. Patient denies chest pain or pressure. Denies SOB. Patient refusing telemetry monitoring. 2D echo is pending. Vital signs are stable. 06/14/2022 Patient examined this morning at the bedside. Patient denies chest pain or pressure. Denies SOB. Family at the bedside. Patient remains somewhat confused this morning. Vital sings are stable. Echocardiogram completed revealing ejection fraction 30-35%, severe right ventricular dilatation, moderate pulmonary hypertension, [id number] mitral regurgitation. 06/15/2022 Patient examined this morning at the bedside. Patient denies chest pain or pressure. Denies shortness of breath. Vital signs are stable. PHYSICAL EXAM: VITAL SIGNS: Reviewed. GENERAL: Well-developed in no acute distress. HEENT: Head is normocephalic. Pupils are equal, round. Sclerae anicteric. Mucous membranes of the mouth are moist. Neck supple. No JVD or thyromegaly LUNGS: Respirations even and unlabored. Lungs essentially clear to auscultation bilaterally. HEART: Regular rate and rhythm. S1 and S2 heard. ABDOMEN: Soft. Nondistended. Nontender. EXTREMITIES: Normal range of motion. No clubbing or cyanosis. Peripheral pulses intact. No lower extremity edema NEUROLOGIC: Awake and alert. Oriented x 2. ASSESSMENT: Altered mental status Hypoglycemia Polycystic kidney disease End-stage renal disease on hemodialysis Abnormal troponin, likely secondary to chronic kidney disease, no evidence of ACS Hypertension Mild coronary artery disease, per cardiac catheterization in 2016 History of nonischemic cardiomyopathy, EF 30-35 Elevated LFTs PLAN: Continue current cardiac medications Patient would benefit from FLORENTINO/ARB secondary to hx of cardiomyopathy. Will re- evaluate on an outpatient basis pending blood pressures. Patient is stable from a cardiac standpoint Plan for discharge to [facility]CF We will sign off. Please reconsult if needed. Nurse practitioner note has been reviewed by physician. Signing provider agrees with the documented findings, assessment, and plan of care. Objective - Vital Signs Vital signs: Vital Signs Temp 98.1 F 06/15/22 08:22 Pulse 80 06/15/22 11:31 Resp 18 06/15/22 08:22 BP 144/74 06/15/22 08:22 Pulse Ox 100 06/15/22 08:22 FiO2 Intake & Output 06/14/22 06/15/22 06/15/22 18:59 06:59 18:59 Intake Total 598 480 200 Output Total 0 Balance 598 480 200 Weight 82.5 kg Intake: Oral 598 480 200 Output: Urine 0 Other: # Voids 0 - Labs CBC & Chem 7: 06/13/22 08:09 06/13/22 08:09 Labs: Abnormal Lab Results - Last 24 Hours (Table) 06/14/22 06/14/22 06/15/22 Range/Units 17:16 23:51 06:06 POC Glucose (mg/dL) 120 H 119 H 112 H (70-110) mg/dL
[2022-06-15 11:42] LABS: Glucose,Whole Blood 106 mg/dL (70-110)
[2022-06-15 11:58] VITALS: TEMP 98.2
[2022-06-15 16:51] VITALS: PULSE 78; RESP 14
[2022-06-15 17:21] LABS: Glucose,Whole Blood 103 mg/dL (70-110)
[2022-06-15 19:11] VITALS: BP 126/59
== END 2022-06-15 19:37 | disposition home or self-care (01) | DRG 637 ==
LOC: EDBD → CATHCVL 09:26 → 3SCARD 12:36
PROVIDERS: ADMIT Family Medicine; ATTEND Family Medicine
PROC: 05H933Z Insertion of Infusion Device into Right Brachial Vein, Percutaneous Approach (ICD-10-PCS; 2022-06-07)
PROC: 5A1D70Z Performance of Urinary Filtration, Intermittent, Less than 6 Hours Per Day (ICD-10-PCS; principal; 2022-06-08)
PROC: 05HD33Z Insertion of Infusion Device into Right Cephalic Vein, Percutaneous Approach (ICD-10-PCS; 2022-06-12 07:30)
DX: E11.649 Type 2 diabetes mellitus with hypoglycemia without coma (principal); G93.41 Metabolic encephalopathy; E46 Unspecified protein-calorie malnutrition; E87.2 Acidosis; I13.2 Hypertensive heart and chronic kidney disease with heart failure and with stage 5 chronic kidney disease, or end stage renal disease; I42.8 Other cardiomyopathies; Q61.3 Polycystic kidney, unspecified; T82.838A Hemorrhage due to vascular prosthetic devices, implants and grafts, initial encounter; D63.1 Anemia in chronic kidney disease; E11.22 Type 2 diabetes mellitus with diabetic chronic kidney disease; E11.65 Type 2 diabetes mellitus with hyperglycemia; F03.90 Unspecified dementia, unspecified severity, without behavioral disturbance, psychotic disturbance, mood disturbance, and anxiety; F17.210 Nicotine dependence, cigarettes, uncomplicated; G89.29 Other chronic pain; I08.3 Combined rheumatic disorders of mitral, aortic and tricuspid valves; R74.01 Elevation of levels of liver transaminase levels; I25.10 Atherosclerotic heart disease of native coronary artery without angina pectoris; I27.20 Pulmonary hypertension, unspecified; I49.3 Ventricular premature depolarization; I50.9 Heart failure, unspecified; J44.9 Chronic obstructive pulmonary disease, unspecified; K59.00 Constipation, unspecified; M89.9 Disorder of bone, unspecified; E88.9 Metabolic disorder, unspecified; N18.6 End stage renal disease; R32 Unspecified urinary incontinence; W01.0XXA Fall on same level from slipping, tripping and stumbling without subsequent striking against object, initial encounter; Y84.1 Kidney dialysis as the cause of abnormal reaction of the patient, or of later complication, without mention of misadventure at the time of the procedure; Z51.5 Encounter for palliative care; Z96.652 Presence of left artificial knee joint; Z99.2 Dependence on renal dialysis; Z87.01 Personal history of pneumonia (recurrent)
CPT/HCPCS: 36410; 36415; 36600; 70450; 71045; 76937; 80048; 80053; 80061; 80076; 82140; 82607; 82746; 83036; 83605; 83735; 84100; 84443; 84484; 85025; 85027; 87040; 90935; 93005; 93306; 94640; 94760; 96361; 96372; 96374; 99291